=== PATIENT | female | born 1990 | race Caucasian/White ===

== ENCOUNTER 2023-02-25 08:55 | Emergency (ER) | payer OTHER, SELFPAY ==
[2023-02-25 09:23] VITALS: BP 115/72; PULSE 85; RESP 18; TEMP 37; O2SAT 100
--- NOTE | 2023-02-25 12:31 | ED.DENTAL ---
HPI - Dental/Oral General Chief complaint: Dental/Oral Stated complaint: swollen lips, bumps in mouth Time Seen by Provider: 02/25/23 11:03 History of Present Illness HPI Narrative: This is a 32-year-old female, with past medical history of left-sided salivary gland stone, who presents emergency department complaining of painful lesions of the gums with the past week. She states these arose without obvious injury or fever. She was seen by her dentist who prescribed a topical steroid cream. She denies presence of similar lesions elsewhere. She complains of some pain with swallowing but denies difficulty swallowing or difficulty breathing. Related Data Allergies Allergy/AdvReac Type Severity Reaction Status Date / Time No Known Allergies Allergy Verified 02/25/23 10:59 Review of Systems Review of Systems: CONSTITUTIONAL: Denies fever, chills, or sweats. ENT: Sore throat, gum pain Denies rhinorrhea, congestion, otalgia. CARDIOVASCULAR: Denies chest pain, palpitations, or edema. RESPIRATORY: Denies cough or dyspnea. GASTROINTESTINAL: Denies abdominal pain, nausea, vomiting, or diarrhea. GENITOURINARY: Menstrual period ongoing Denies dysuria or hematuria. SKIN: Denies rash or itching. MUSCULOSKELETAL: Denies back pain, joint pain, or myalgia. NEUROLOGIC: Denies headache, numbness, dizziness, or weakness. PSYCHIATRIC: Denies anxiety or depression. PMFSH Past Medical History Medical History Salivary gland stone Surgical History Surgical History No significant past surgical history Social History Social History (Updated 02/25/23 @ 12:34 by Jake Lee MD) Smoking status: Never smoker Alcohol intake: never Substance use: never Exam Narrative: GENERAL: Well-appearing, well-nourished, and in no acute distress. HEAD: Normocephalic, atraumatic. EYES: PERRLA and EOMI. ENT: Nares clear, no rhinorrhea or epistaxis. Mucous membranes moist. Multiple shallow ulcers with surrounding erythema noted on mucosa of the upper and lower lips and the exterior gingiva. Oropharynx without tonsillar hypertrophy exudate or other lesions. CHEST: Clear to auscultation. No respiratory distress. No wheezes rales or rhonchi HEART: Regular rate and rhythm. No murmur heard. Normal peripheral pulses. NEURO: No focal deficits. Alert and oriented x3. PSYCH: Normal mood and affect. Course Course Emergency Course: 12:20 - Exam consistent with aphthous ulcers. Patient is on appropriate treatment plan by her dentist. Will add a viscous lidocaine for pain. I advised the patient follow-up with her primary care doctor and dentist. Discussed return and emergency precautions including signs/symptoms of airway compromise. The patient voiced understanding and is comfortable with the plan. All questions answered to her satisfaction. GLAZIER APPRENTICE/PA Physician Supervision Vital Signs Vital signs: Vital Signs Temperature 98.6 F 02/25/23 09:23 Pulse Rate 85 02/25/23 09:23 Respiratory Rate 18 02/25/23 09:23 Blood Pressure 115/72 02/25/23 09:23 Pulse Oximetry 100 02/25/23 09:23 Oxygen Delivery Room Air 02/25/23 09:23 Temperature 98.6 F 02/25/23 09:23 Pulse Rate 76 02/25/23 12:45 Respiratory Rate 16 02/25/23 12:45 Blood Pressure 112/70 02/25/23 12:45 Pulse Oximetry 98 02/25/23 12:45 Oxygen Delivery Room Air 02/25/23 09:23 MDM - Dental/Oral MDM Narrative Medical decision making narrative: Plan: Pain control, dental follow-up Differential Diagnosis Differential diagnosis: Likely aphthous ulcer and other ( viral ulcer, other) Discharge Plan Discharge Clinical Impression: Aphthous ulcer Patient Disposition: Home, Self-Care Condition: Stable Instructions: Antibiotic Form, Gingivostomatitis (ED) Additional Instructions: You were seen in the emergency departmen
[2023-02-25] MEDS: LIDOCAINE HCL 2% VISC SOLN 15 ML UDC PO (12:38)
[2023-02-25 12:45] VITALS: BP 112/70; PULSE 76; RESP 16; O2SAT 98
== END 2023-02-25 12:48 | disposition home or self-care (01) ==
PROVIDERS: Emergency Provider Preventive Medicine Aerospace Medicine; PCP Family Medicine
DX: K12.0 Recurrent oral aphthae (principal)
CPT/HCPCS: 99283

== ENCOUNTER 2023-06-15 18:04 | Emergency (ER) | payer OTHER, SELFPAY ==
--- NOTE | ~2023-06-15 | US_ITS ---
EXAMINATION: US pelvic complete w TV DATE: 06/15/2023 22:18 INDICATION: RLQ Pain TECHNIQUE: Multiple transabdominal and endovaginal sonographic images of the pelvis were obtained. COMPARISON: CT abdomen pelvis, same date FINDINGS: Uterus: 8.5 x 3.8 x 4.5 cm. Endometrial complex measures 6 mm. Nabothian cysts. Right Ovary: 3.6 x 2.3 x 2.1 cm. Vascular flow is present. Small simple cyst or dominant follicle. Left Ovary: Not visualized. There is no free fluid in the pelvis. IMPRESSION: Left ovary not visualized, but was normal in the prior CT. Otherwise normal pelvic sonogram findings. Reviewed, dictated and finalized at location K. IMPRESSION: Left ovary not visualized, but was normal in the prior CT. Otherwise normal pel star sonogram findings.
--- NOTE | ~2023-06-15 | CT_ITS ---
EXAMINATION: CT abdomen pelvis w con DATE: 06/15/2023 20:45 INDICATION: RLQ pain TECHNIQUE: Computed tomography (CT) of the abdomen and pelvis was performed with 100 mL Omnipaque-350 intravenous contrast. Automated exposure control and iterative reconstruction technique were employe d. The dose-length product was 373.83 mGy-cm. COMPARISON: None. FINDINGS: Lower thorax: Unremarkable Liver: Normal. Biliary/Gallbladder: Gallbladder is normal. No bile duct dilation. Pancreas: No mass or duct dilation. Spleen: Normal. Adrenals:No mass. Kidneys: No suspicious mass, obstructing stone, or hydronephrosis. GI tract: Mild distal esophageal and gastric wall edema. Large volume of colonic feces. No small or l arge bowel dilation. Normal appendix. Mesentery/Peritoneum: No ascites, mass, or free air. Retroperitoneum: No mass. Pelvis: Pelvic organs are within normal limits. Soft Tissues: Soft tissues and body wall unremarkable. Bones: No acute osseous finding. Sacralization of L5. Rudimentary disc at L5-S1. 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 IMPRESSION: Mild esophagitis/gastritis. Large volume of colonic feces, correlate for clinical findings of constipation. Reviewed, dictated and finalized at location K.
[2023-06-15 18:09] VITALS: BP 142/73; PULSE 79; RESP 20; TEMP 36.4; O2SAT 100
--- NOTE | 2023-06-15 18:15 | ED.ABDPAIN ---
HPI - Abdominal Pain General Chief Complaint: Abdominal Pain <Elo Gutiérrez PA-C - Last Filed: 06/15/23 18:16> Stated Complaint: RLQ pain <Elo Gutiérrez PA-C - Last Filed: 06/15/23 18:16> Time Seen by Provider: 06/15/23 21:01 <Elo Gutiérrez PA-C - Last Filed: 06/15/23 18:16> Focused HPI: 33-year-old female with a history of appendectomy presents to emergency department her lower quadrant abdominal pain that started yesterday. Patient states pain is worse with movement and any flexion of her abdominal muscles. states she can not pinpoint the area of pain with 1 finger. She reports nausea, denies vomiting, fever, dysuria or hematuria, vaginal discharge concern for STDs. LMP was 06/04. She does report some loose stools GENERAL: Well-appearing, well-nourished, and in no acute distress. HEAD: Normocephalic, atraumatic. CHEST: Clear to auscultation. ?No respiratory distress. ABD: mild tenderness in the right lower quadrant without rebound, guarding rigidity. No CVA tenderness. HEART: Regular rate and rhythm.? NEURO: ?Alert and oriented x3. Patient screened in triage and initial orders placed.? ?Additional care and disposition to be based upon?diagnostic testing and treatment. <Elo Gutiérrez PA-C - Last Filed: 06/15/23 18:16> Related Data Allergies/Adverse Reactions: Allergies Allergy/AdvReac Type Severity Reaction Status Date / Time No Known Allergies Allergy Verified 02/25/23 10:59 <Elo Gutiérrez PA-C - Last Filed: 06/15/23 18:16> Review of Systems Review of Systems: All systems are reviewed and are negative unless stated otherwise in the HPI. <Deborah Lai MD - Last Filed: 06/16/23 07:33> PMFSH Past Medical History Medical History: Medical History Salivary gland stone <Elo Gutiérrez PA-C - Last Filed: 06/15/23 18:16> Surgical History Surgical History: Surgical History No significant past surgical history <Elo Gutiérrez PA-C - Last Filed: 06/15/23 18:16> Social History Social History: Social History Smoking status: Never smoker Alcohol intake: never Substance use: never <Elo Gutiérrez PA-C - Last Filed: 06/15/23 18:16> Exam Narrative: General: Alert, awake, afebrile, in no acute distress. HEENT: PERRL, no rhinorrhea, no post nasal drip, oropharynx clear. Neck: Trachea midline, no JVD, no lymphadenopathy. Cardiovascular: Regular rate and rhythm, no murmurs, rubs or gallops, no peripheral edema. Respiratory: Clear to auscultation bilaterally, no tachypnea, no wheezing, no rhonchi, no rubs, no respiratory distress. Abdomen: Soft, mild tenderness to palpation over the right lower quadrant, nondistended, no rebound, no guarding, no peritoneal signs. Musculoskeletal: No joint swelling or deformity, normal muscle tone. Skin: No rashes or petechia, no signs of infection. Psychiatric: Alert and oriented, normal behavior and judgment for situation. Neurological: Alert and oriented to person, place, and time. Follows all commands. No focal deficits, speech is clear and fluent. <Deborah Lai MD - Last Filed: 06/16/23 07:33> Course Vital Signs Vital signs: Vital Signs Temperature 97.5 F L 06/15/23 18:09 Pulse Rate 79 06/15/23 18:09 Respiratory Rate 20 06/15/23 18:09 Blood Pressure 142/73 H 06/15/23 18:09 Pulse Oximetry 100 06/15/23 18:09 Temperature 97.5 F L 06/15/23 18:09 Pulse Rate 77 06/15/23 21:10 Respiratory Rate 18 06/15/23 21:10 Blood Pressure 132/81 06/15/23 21:10 Pulse Oximetry 100 06/15/23 21:10 <Elo Gutiérrez PA-C - Last Filed: 06/15/23 18:16> Vital Signs Temperature 97.5 F L 06/15/23 18:09 Pulse Rate 79 06/15/23 18:09 Respiratory Rate 20 06/15/23 18:09 Blood P
[2023-06-15 19:10] LABS: Basophils Percent Auto 0.5 % (0.2-1.2); Eosinophils Absolute Auto 0.2 K/mm3 (0-0.3); Eosinophils Percent Auto 3.3 % (0-4.4); Hematocrit 40.3 % (37.0-47.0); Hemoglobin 13.1 g/dL (12.0-15.0); Immature Granulocyte Absolute 0.01 K/mm3 (0.00-0.031); Immature Granulocyte Percent A 0.2 % (0-0.5); Lymphocytes Absolute Auto 1.84 K/mm3 (0.9-3.2); Lymphocytes Percent Auto 28.8 % (18.3-44.2); Mean Corpuscular HGB Conc 32.5 g/dl (32-36); Mean Corpuscular Hemoglobin 30.8 pg (26-34); Mean Corpuscular Volume 94.6 fl (80-100); Mean Platelet Volume 9.7 fl (7.4-10.4); Monocytes Absolute Auto 0.5 K/mm3 (0.1-0.6); Neutrophils Absolute Auto 3.9 K/mm3 (1.3-6.7); Neutrophils Percent Auto 60.2 % (45.5-73.1); Platelet Count Result 168 k/mm3 (150-375); Red Blood Count 4.26 M/mm3 (4.2-5.4); Red Cell Distribution Width 12.3 % (11.5-14.5); White Blood Count 6.4 K/mm3 (4.5-10.0)
[2023-06-15 19:15] LABS: Appearance Urine Clear (Clear); Bilirubin Urine Negative (Negative); Blood Urine Negative (Negative); Color Urine Yellow (Yellow); Glucose Urine UA Negative (Negative); Ketones Urine Negative (Negative); Leukocyte Esterase Ur Negative LEU/UL (Negative); Nitrate Urine Negative (Negative); Protein Urine Negative (Negative); Urobilinogen Urine 0.2 mg/dL (<2.0); pH Urine 6.5 (5.0-9.0)
[2023-06-15 19:21] LABS: Add Urine Microscopic? NO; Specific Grav Ur 1.004 (1.001-1.035)
[2023-06-15 19:31] LABS: Alanine Aminotransferase 8 U/L (6-35); Albumin Level 4.8 g/dL (3.5-5.1); Alkaline Phosphatase 58 U/L (38-126); Anion Gap 8 mmol/L (4-12); Aspartate Amino Transferase 28 U/L (14-36); Bilirubin,Total 0.6 mg/dL (0.2-1.3); Blood Urea Nitrogen 10 mg/dL (7-17); Calcium 9.4 mg/dL (8.4-10.2); Carbon Dioxide 24 mmol/L (22-30); Chloride 106 mmol/L (98-107); Estimated CRCL calculation 98 ml/min; Estimated Glomerular Filt Rate > 60; Glucose 85 mg/dL (65-110); Lactic Acid Reflex 0.9 mmol/L (0.7-2.0); Lipase 74 U/L (23-300); Potassium 3.7 mmol/L (3.4-5.0); Sodium 138 mmol/L (137-145)
[2023-06-15 21:10] VITALS: BP 132/81; PULSE 77; RESP 18; O2SAT 100
== END 2023-06-15 22:57 | disposition home or self-care (01) ==
PROVIDERS: Physician Assistant; Emergency Provider Emergency Medicine; PCP Family Medicine
DX: K29.00 Acute gastritis without bleeding (principal); K20.90 Esophagitis, unspecified without bleeding; K59.00 Constipation, unspecified
CPT/HCPCS: 36415; 74177; 76830; 76856; 80053; 81003; 81025; 83605; 83690; 85025; 99284; Q9967

== ENCOUNTER 2024-09-24 17:04 | Emergency (ER) | payer SELFPAY ==
--- OUTSIDE RECORDS SUMMARY | 2024-09-24 17:07 | XMS_ITS | Encounter Summary ---
Author Organization [facility] Address [address] [place] [address] Phone Care Team Providers Care Equipment Validation Specialist Name Role Phone Unavailable Primary Care Provider Unavailabl e Encounter Details Date Type Department Care Team (Late st Contact Info) Description 03/24/2022 Lab Requisition [facility] [address] [place] [address] Braeden Tabares MD [address] [place] [address] [address] [place], [place] [id number] Encounter for screening for COVID-19 Social History Tobacco Use Types Packs/Day Years Used Date Smoking Tobacco: Never Assessed Comments Unknown Sex and Gender Information Value Date Recorded Sex Assigned at Not on file Legal Sex Female 1:53 PM NURSES' ASSOCIATION COUNSELOR Gender Identity Not on file Sexual Orientation Not on file documented as of this encounter Plan of Treatment Not on file documented as of this encounter Procedures Procedure Name Priority Date/Time Associated Diagnosis Comments SARS-COV-2 BY MOLECULAR Routine 03/24/2022 11:45 AM NURSES' ASSOCIATION COUNSELOR Encounter for screening for COVID-19 documented in this encounter Results * SARS-COV-2 BY MOLECULAR (03/24/2022 11:45 AM NURSES' ASSOCIATION COUNSELOR) SARSCOV2 NOT DETECTED (Referen ce Range for this test is Not Detected ) [facility] THERMOFISHER FAST DX 03/25/2022 12:19 AM NURSES' ASSOCIATION COUNSELOR [facility] Comment:This test was perfor med by a RT-PCR method. Other Non-Phlebotomy Collection / Unknown 03/24/2022 11:45 AM NURSES' ASSOCIATION COUNSELOR 03/24/2022 1:25 PM NURSES' ASSOCIATION COUNSELOR Narrative [facility] - 03/25/2022 12:19 AM NURSES' ASSOCIATION COUNSELOR Authorized Fact Sheets about this test for providers and patients are available at: https://www.fda.gov/medical-devices/sejodaxhp-predojseog-lqvjwdm-devices/emergen -us e-authorizations us Braeden Tabares MD MICROBIOLOGY - GENERAL ORDERAB LES Final Result [facility] [address] [place] [address], documented in this encounter Visit Diagnoses Diagnosis Encounter for screening for COVID-19 documented in this encounter Additional Health Concerns Infection Onset Date Last Indicated Resolved Time COVID - 19 03/24/2022 03/31/2022 04/10/2022 12:1 6 AM NURSES' ASSOCIATION COUNSELOR documented as of this encounter
--- OUTSIDE RECORDS SUMMARY | 2024-09-24 17:07 | XMS_ITS | Encounter Summary ---
Author Organization [facility] Address [address] [place] [address] Phone Care Team Providers Care Traffic Analysis Technician Name Role Phone Unavailable Primary Care Provider Unavailabl e Encounter Details Date Type Department Care Team (Late st Contact Info) Description 03/31/2022 Lab Requisition [facility] [address] [place] [address] Braeden Tabares MD [address] [place] [address] [address] [place] [address] Encounter for screening for COVID-19 Social History Tobacco Use Types Packs/Day Years Used Date Smoking Tobacco: Never Assessed Comments Unknown Sex and Gender Information Value Date Recorded Sex Assigned at Not on file Legal Sex Female 1:53 PM POULTRY FIELD SERVICE TECHNICIAN Gender Identity Not on file Sexual Orientation Not on file documented as of this encounter Plan of Treatment Not on file documented as of this encounter Procedures Procedure Name Priority Date/Time Associated Diagnosis Comments SARS-COV-2 BY MOLECULAR Routine 03/31/2022 8:31 AM POULTRY FIELD SERVICE TECHNICIAN Encounter for screening for COVID-19 documented in this encounter Results * SARS-COV-2 BY MOLECULAR (03/31/2022 8:31 AM POULTRY FIELD SERVICE TECHNICIAN) SARSCOV2 NOT DETECTED (Referen ce Range for this test is Not Detected ) [facility] THERMOFISHER FAST DX 04/01/2022 6:43 AM POULTRY FIELD SERVICE TECHNICIAN [facility] Comment:This test was perfor med by a RT-PCR method. Other Non-Phlebotomy Collection / Unknown 03/31/2022 8:31 AM POULTRY FIELD SERVICE TECHNICIAN 03/31/2022 11:14 AM POULTRY FIELD SERVICE TECHNICIAN Narrative [facility] - 04/01/2022 6:43 AM POULTRY FIELD SERVICE TECHNICIAN Authorized Fact Sheets about this test for providers and patients are available at: https://www.fda.gov/medical-devices/kfuicmbqg-awpikmukri-yctuqtm-devices/emergen -us e-authorizations us Braeden Tabares MD MICROBIOLOGY - GENERAL ORDERAB LES Final Result [facility] [address] [place] [address], documented in this encounter Visit Diagnoses Diagnosis Encounter for screening for COVID-19 documented in this encounter Additional Health Concerns Infection Onset Date Last Indicated Resolved Time COVID - 19 03/24/2022 03/31/2022 04/10/2022 12:1 6 AM POULTRY FIELD SERVICE TECHNICIAN documented as of this encounter
--- OUTSIDE RECORDS SUMMARY | 2024-09-24 17:07 | XMS_ITS | Encounter Summary ---
Author Organization [facility] Address [address] [place] [address] Care Team Providers Care Wrong Address Clerk Name Role Phone Belia Sierra MD Primary Care Provider [phone] Encounter Details Date Type Department Care Team (Late st Contact Info) Description 09/18/2024 Live Life 360t Message Enc [facility] [address] [place] [address] Peggy Paetl NP [address] [facility] [address] [place] [address] Change in BM Social History Tobacco Use Types Packs/Day Years Used Date Smoking Tobacco: Never Passive Smoke Exposure: Never Smokeless Tobacco: Never Alcohol Use Standard Drinks/Week Comments No 0 (1 standard drink = 0.6 oz pur e alcohol) AUDIT-C Answer Date Recorded Frequency of Alcohol Consumption Never 12/06/2017 Average Number of Drinks Not on file 018 Frequency of Binge Drinking Not on file 11/18 PHQ-2 Answer Date Recorded Patient Health Questionnaire-2 Score 0 08/28/2024 Comments No Sex and Gender Information Value Date Recorded Sex Assigned at Female 04/16/2024 9:58 AM MAT TESTER Legal Sex Female 8:14 AM CDT Gender Identity Female 04/16/2024 9:58 AM MAT TESTER Sexual Orientation Straight 07/19/2024 8: 31 AM CDT documented as of this encounter Plan of Treatment Upcoming Encounters Date Type Department Care Team (Latest Contact Info) Description 12/27/2024 12:43 PM CDT Hospital Encounter [facility] [address] [place] [address] Jay Real MD [address] [facility] [address] [place] [address] 12/27/2024 12:43 PM CDT - 12/27/2024 1:13 PM CDT Surgery [facility] [address] [place] [address] Jay Real MD [address] [facility] [address] [place] [address] COLONOSCOPY DIAGNOSTIC WITH/WITHOUT SPECIMEN BRUSH/WASH Scheduled Procedures Name Priority Associated Diagnoses Date/Ti me COLONOSCOPY DIAGNOSTIC WITH/WITHOUT SPECIMEN BRUSH/WASH Irregular bowel habits 12/27/2024 12:43 PM CDT documented as of this encounter Goals Goal Patient Goal Type Associated Problems Recent Progress Patient-Stated? Author Autogenerat ed Goal Care Plan Autogenerated Problem No Carol Ann Urena RN documented as of this encounter Visit Diagnoses Not on filedocumented in this encounter Additional Health Concerns Active Problems Noted Date Diagnosed Date Autogenerated Problem 08/29/2024 Assessment Noted Time PHQ-9 Depression Total Score: 0 05/22/19 25 4:55 PM MAT TESTER documented as of this encounter Care Teams Wrong Address Clerk Relationship Specialty Start Date End Date Belia Sierra MD [facility] [address] [address] PCP - General FAMILY PRACTICE 03/05/24 documented as of this encounter
--- OUTSIDE RECORDS SUMMARY | 2024-09-24 17:07 | XMS_ITS | Data Portability ---
Author Organization [place] - [facility], Main Office Address [address] [place] [address] Assessment No assessment recorded. Plan of Treatment Reminders Order Date Submit Date Provider Last Modified By Organization Details Last Modified Time Details Appointments None recorded. Lab vitamin B12 + folate, serum or blood [address] (Lab), [address] [place], [address], 3 12:52:19 vitamin D, 25-hydroxy, total, serum [address] (Lab), [address] [place], [address], 3 12:52:36 iron + TIBC + ferritin, serum [address] (Lab), [address] [place], [address], 3 12:52:53 TSH, serum, reflex free T4 [address] (Lab), [address] [place], [address], 3 12:53:14 estrogen, total, serum [address] (Lab), [address] [place], [address], 3 12:53:30 progesteron e, serum [address] (Lab), [address] [place], [address], 3 12:53:45 testosteron e, free + total, serum [address] (Lab), [address] [place], [address], 3 12:54:04 FSH (follicle-s timulating hormone), serum [address] (Lab), [address] [place], [address], 3 12:54:18 lh (luteinizin g hormone), serum [address] (Lab), [address] [place], [address], 3 12:54:34 lipid panel, serum [address] (Lab), [address] [place], [address], 3 12:55:54 BMP, serum or plasma [address] (Lab), [address] [place], [address], 3 12:54:50 CMP, serum or plasma [address] (Lab), [address] [place], [address], 3 12:55:38 Referral gynecologis t referral - Please call the pt to make an appt. Thank you 2022 023 Lain[facility] Peacock MD, [facility], [address], [address], 09:35:24 Procedures None recorded. Surgeries None recorded. Imaging None recorded. Medication Orders None recorded. Patient TargetsNo targets recorded. Patient InstructionsNo instructions recorded. 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 Thank you Referring Physician: Hodan Jefferson, Family Medicine, Encounter Date: 07/11/2022 Results Created Date Observation Date Name Description Value Unit Range Abnormal Flag Note LastModifiedBy Organization Detail LastModifiedTime 12/08/19 21 12/07/2020 PPD (loren fied prote in deriv ative ), skin test TB negati ve Not Available [facility] [address] , [place], [address], 12/01/2020 15:18:18 06/15/19 24 06/15/2023 CT, abdom en + pelvi s, w/ contr ast No observ ation record ed. [address], [address], 06/19/2023 13:32:44 06/15/19 24 06/15/2023 US, pelvi s No observ ation record ed. [address], [address], 06/19/2023 13:33:11 06/19/19 24 06/15/2023 CT, abdom en + pelvi s, w/ contr ast No observ ation record ed. [address], [address], 06/19/2023 13:33:26 06/22/19 24 06/15/2023 CT, abdom en + pelvi s, w/o contr ast No observ ation record ed. [address], [address], 08/04/2023 15:44:30 Result Notes None recorded. Problems Name Problem SNOMED Code Status Onset Date Resolution Date Notes Provider Name and Address Organization Details Recorded Time Loss of hair [id number] Active 023 ALLEN Richards [address] [facility], [address], [place], [address] , [facility] [employer] [facility] 07/11/2022 11:02:41 Problem Notes None recorded. Procedures Surgical History Date Name Laterality Status Provider Name and Address Organization Details Recorded Time Appendectomy completed Not Available [facility] 05/18/2022 21:48:59 colposcopy completed Not Available [facility] 05/18/2022 21:48:59 Imaging Results None recorded. Procedure Notes None recorded. Medical Equipment None Reported. Allergies No known drug allergies Medications Name Sig Start Date Stop Date Status Note LastModified by Organization Details LastModified Time dicloxacill in 500 mg capsule Take 1 capsule twice a day by oral route for 7 days. active Not Available Not Available No t Available valacyclovi r 1 gram tablet Take 1 tablet every 12 hours by oral route for 7 days. active Not Available Not Available No t Available prednisone 20 mg tablet Take 2 tablets every day by oral route for 5 days. active Not Available Not Available No t Available Zithromax Z-Roly 250 mg tablet TAKE 2 TABLETS (500 MG) BY ORAL ROUTE ONCE DAILY FOR 1 DAY THEN 1 TABLET (250 MG) BY ORAL ROUTE ONCE DAILY FOR 4 DAYS active Not Available Not Available No t Available ciprofloxac in 500 mg tablet 08/25 completed Not Available Not Available Not Available benzonatate 100 mg capsule 08/25 completed Not Available Not Available Not Available oseltamivir 75 mg capsule 08/25 completed Not Available Not Available Not Available triamcinolo ne acetonide 0.1 % topical ointment APPLY A THIN LAYER TO THE AFFECTED AREA(S) BY TOPICAL ROUTE 2 TIMES PER DAY active Not Available Not Available No t Available sertraline 25 mg tablet Take 1 tablet(s) every day by oral route. active Not Available Not Available No t Available gabapentin 100 mg capsule Take 1 capsule 3 times a day by oral route as needed for 10 days. 12/01 completed Not Available Not Available Not Available ondansetron 4 mg disintegrat ing tablet 08/25 completed Not Available Not Available Not Available fluticasone propionate 50 mcg/actuati on nasal spray,suspe nsion SPRAY 1 SPRAY BY INTRANASA L ROUTE EVERY DAY active Not Available Not Available No t Available sertraline 50 mg tablet TAKE 1 TABLET BY MOUTH EVERY DAY active Not Available Not Available No t Available amoxicillin 875 mg-potassiu m clavulanate 125 mg tablet TAKE 1 TABLET BY MOUTH EVERY 12 HOURS WITH MEALS FOR 7 DAYS active Not Available Not Available No t Available Zylet 0.3 %-0.5 % eye drops,suspe nsion 08/25 completed Not Available Not Available Not Available Vitals Date Recorded Body mass index (BMI) Body height Oxygen saturation Oxygen saturation in Arterial blood by Pulse oximetry Heart rate Body temperature Body weight Systolic And Diastolic Provider Name and Address Organization Details Last Updated DateTime 2 27.7 kg/m2 172.72 cm 98 % 98 % 78 /min 97.5 [degF] 36318.8 1 g 120/80 mm[Hg] Not Available [facility] 3 21:49:06 Date Recorded Body height Body mass index (BMI) Body weight Body temperature Heart rate Oxygen saturation Oxygen saturation in Arterial blood by Pulse oximetry Systolic And Diastolic Provider Name and Address Organization Details Last Updated DateTime 3 172.72 cm 27.5 kg/m2 36832.2 2 g 97.8 [degF] 78 /min 99 % 99 % 118/74 mm[Hg] Peggy meyers [facility] 3 10:49:40 Date Recorded Body mass index (BMI) Body height Oxygen saturation Oxygen saturation in Arterial blood by Pulse oximetry Heart rate Body temperature Body weight Systolic And Diastolic Provider Name and Address Organization Details Last Updated DateTime 2 27.5 kg/m2 172.72 cm 99 % 99 % 81.99 /min 96.3 [degF] 42516.2 2 g 122/64 mm[Hg] Not Available [facility] 3 21:49:06 Date Recorded Body height Provider Name an d Address Organization Details Last Updated DateTime 12/04/2020 172.72 cm Not Available [facility] 3 21:49:06 Date Recorded Body mass index (BMI) Body height Oxygen saturation Oxygen saturation in Arterial blood by Pulse oximetry Heart rate Body temperature Body weight Systolic And Diastolic Provider Name and Address Organization Details Last Updated DateTime 2 27.7 kg/m2 172.72 cm 100 % 100 % 90 /min 97.7 [degF] 00028.8 1 g 108/72 mm[Hg] Not Available [facility] 3 21:49:06 Social History Question Answer Notes LastModified by [employer] Details LastModified Time Tobacco Smoking Status Never Smoker Not Available [facility] 05/18/2022 21:48:48 What Is Your Level Of Caffeine Consumption? Occasional [id number] Information not available 05/18/2022 In The 14 Days Before Symptom Onset, Have You Had Close Contact With A Laboratory-confirm ed COVID-19 While That Case Was Ill? No [id number] Information not available 05/18/2022 In The 14 Days Before Symptom Onset, Have You Had Close Contact With A Person Who Is Under Investigation For COVID-19 While That Person Was Ill? No [id number] Information not available 05/18/2022 What Type Of Diet Are You Following? REGULAR [id number] Information not available 05/18/2022 Have There Been Any Changes To Your Family Or Social Situation? No [id number] Information not available 05/18/2022 What Was The Date Of Your Most Recent Tobacco Screening? 12/01/2020 [id number] Information not available 05/18/2022 Has Tobacco Cessation Counseling Been Provided? No [id number] 8540 Information not available 05/18/2022 Have You Recently Traveled Abroad? No [id number] Information not available 05/18/2022 Do You Have Any Dietary Restrictions? No [id number] Information not available 05/18/2022 Sex: Unknown Functional Status Question Answer Note LastModified by [employer] Details LastModified Time Do you use any illicit or recreational drugs? No [id number] Information not available 05/18/2022 Do you or have you ever used any other forms of tobacco or nicotine? No [id number] Information not available 05/18/2022 What is your exercise level? Occasional [id number] Information not available 05/18/2022 Mental Status None recorded. Family History Relationship Description Onset Age of this Age Resolved Age Notes LastModified by Organization Details LastModified Time Father Heart disease [id number] Not available 05/18/2022 21:49:00 Father Hypertensive disorder [id number] Not available 05/18/2022 21:49:00 Father Glaucoma 40 [id number] Not available 05/18/2022 21:49:00 Paternal Grandmother Diabetes mellitus [id number] Not available 05/18/2022 21:49:00 Medical History No medical history recorded. Gynecological History Statement/Question Response Abnormal Pap N Flow Moderate Dislike of Light during Menstrual Headac he N STIs/STDs N Duration of Flow (days) 5 Current Control Method None Breast Problems none How many live births 2 Sexually Active? Y Weight gain N Menses Monthly Y Discharge none Obstetrics History GPAL:G 0 P 0 0 0 0 Immunizations Vaccine Type Date Status Note Provider Nam e and Address Organization Details Recorded Time COVID-19 PS Non-US Vaccine (EpiVacCorona ) 07/21/2020 completed Not Available [facility] 21:50:38 COVID-19 VVnr Non-US Vaccine (Sputnik V) 06/28/2020 completed Not Available [facility] 05/19/19 21:50:38 Influenza, split virus, quadrivalent, PF 12/01/2020 completed Not Available [facility] 21:50:38 Past Encounters Encounter ID Performer Location Encounter Start Date Encounter Closed Date Diagnosis/Indication Diagnosis SNOMED-CT Code Diagnosis ICD10 Code Diagnosis Note [id number] [facility] [place] [address] [facility] [address] [place] [address] 12/01/2020 00:00:00 12/01/2020 21:07:21 [id number] ALLEN Richards JameelEmanuel [facility] [place] [address] [place] [address] 12/04/2020 00:00:00 12/07/2020 08:06:21 [id number] [facility] [place] [address] [place] [address] 05/24/2021 00:00:00 05/24/2021 12:10:53 [id number] ALLEN Richards [facility] [place] [address] [place] [address] 08/02/2021 00:00:00 08/02/2021 13:46:06 [id number] ALLEN Richards [facility] Primary [place] [address] [place] [address] 01/12/2022 00:00:00 01/12/2022 10:57:52 [id number] ALLEN Richards [facility] Primary [place] [address] [place] [address] 07/11/2022 10:45:16 07/11/2022 12:56:09 Loss of hair 089041416 L65.9 Will get labs to r/o physiologi c causes. She has also been experienci ng fatigue, skin changes, mood swings. All related to post-partu m state. 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 Diabetes m ellitus screening 875119826 Z13.1 Hyperlipid emia screening [id number] Z13.220 Referral needed [id number] Z76.[address] Pt[address]i st for routine f/u. Would also like to see someone that specialize s in hormones. Health Concerns Section Related Observation LastModified by Organization Detai ls LastModified Time None Recorded Concern Status LastModified by Organization Details LastModified Time None Recorded Advance Directives Directive None Recorded Payers Insurance Date Sequence Insurance Name Policy Number Policy Kraus Covered Member ID Kraus Member ID Guarantor Name 07/11/2022 1 [facility]LY [facility] [place] - DOS PRIOR TO 2024 (PPO) [id number] Ken Kaur [id number] MAI Kaur 04/24/2023 1 FOR[facility]LY [facility] [place] - DOS PRIOR TO 2024 (PPO) [id number] Ken Kaur [id number] MAI Kaur Notes Date Note Type Note Provider Name and Address Organization Details Recorded Time 07/11/2022 text/html Pt. is concerned she has issues with her hormones. 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 She has also noticed increased hair loss, fatigue and mood swings. She states all symptoms started during and she thought it would get better afterwards. She delivered her last baby 03/19/2020, stopped in 04/2022. Cycles have gone back to normal. ALLEN Richards [address] [facility], [facility] [address], [place], [address], [facility] 07/11/2022 12:48:25 OBGyn Episode No OBEpisode recorded.
--- OUTSIDE RECORDS SUMMARY | 2024-09-24 17:07 | XMS_ITS | Referral Summary ---
Author Organization [facility] Address [address] [place] [address] Care Team Providers Care Woodworking Craftsman Name Role Phone Jessica Browne MD Primary Care Provider + Jessica Browne MD Unavailable [phone] Allergies No known active allergies Medications sertraline (ZOLOFT) 25 mg tablet TAKE 1 TABLET BY MOUTH EVERY DAY FOR 30 DAYS 05/24/2021 Active 25/iron fum/folic/dha (-1 ORAL) Take 1 tablet by mouth daily Active amoxicillin-clav ulanate (AUGMENTIN) 875-125 mg per tablet Take 1 tablet by mouth 2 (two) times a day 08/11/2022 Active Active Problems Problem Noted Date Diagnosed Date Encounter for PPD skin test reading 09/15/2022 Immunizations Immunization Administration Dates Next Due PPD TEST 09/13/2022 Social History Tobacco Use Types Packs/Day Years Used Date Smoking Tobacco: Never Tobacco Cessation:Counseling Given: Not Answered Personal Safety Answer Date Recorded Getting School Help Needed Not on file 05/19 Comments No Sex and Gender Information Value Date Recorded Sex Assigned at Not on file 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 Gender Identity Not on file Sexual Orientation Not on file Last Filed Vital Signs Vital Sign Reading Time Taken Comments Blood Pressure 110/64 09/13/2022 2:48 PM CDT Pulse 76 09/13/2022 2:48 PM CDT Temperature 36.7 C (98 F) 09/13/2022 2:48 PM CDT Respiratory Rate 20 09/13/2022 2:48 PM CDT Oxygen Saturation 98% 09/13/2022 2:48 PM CDT Inhaled Oxygen Concentration - - Weight 79.4 kg (175 lb) 09/13/2022 2:48 PM CDT Height 172.7 cm (5' 8) 09/13/2022 2:48 PM CDT Body Mass Index 26.61 09/13/2022 2:48 PM CDT Plan of Treatment Not on file Insurance [facility] [place] [address] Care Teams Woodworking Craftsman Relationship Specialty Start Date End Date Jessica Browne MD [address] [place] [address] PCP - General Family Medicine 05/24/21 Jessica Browne MD [address] [place] [address] Family Medicine 05/24/21
--- OUTSIDE RECORDS SUMMARY | 2024-09-24 17:07 | XMS_ITS | Clinical Summary ---
Author Organization [facility] Address [address] [place] [address] Care Team Providers Care Rn Gastroenterology Name Role Phone Jessica Browne MD Primary Care Provider + Jessica Browne MD Unavailable [phone] Allergies No known active allergies Medications sertraline [...] Administration Dates Next Due PPD TEST 09/13/2022 Medical History Medical History Date Comments Anxiety Heart murmur Urinary tract infection Family History Medical History Relation Name Comments Glaucoma Father Hypertension Father Relation Name Status Comments Father Social History Tobacco Use Types Packs/Day Years Used Date Smoking Tobacco: Never Tobacco Cessation:Counseling Given: Not Answered Personal Safety Answer Date Recorded Getting School Help Needed Not on file 05/19 Comments No Sex and Gender Information Value Date Recorded Sex Assigned at Not on file 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 Gender Identity Not on file Sexual Orientation Not on file Obstetrics History Last Filed Vital Signs Vital Sign Reading [...] 09/13/2022 2:48 PM CDT Plan of Treatment Health Maintenance Due Date Last Done Comments Cervical Cancer Screening 1989 Depression Screening 1989 Hepatitis C Screening 1989 DTaP/Tdap/Td Vaccine (1 - Tdap) 2000 Varicella Vaccines (1 of 2 - 13+ 2-dose series) 2002 Hepatitis B Screening 2007 Regular Well Visit/Exam 18-64 2007 Covid-19 Vaccine (4 - 2023-2 5 season) 2023 02/05/2021, 07/21/2020, 06/28/2020 Influenza Vaccine (#1) 2024 , 12/07/2017 HPV Vaccines Aged Out No longer eligi ble based on patient's age to complete this topic Pneumococcal vaccine <65 Aged Out No longer eligible based on patient's age to complete this topic Insurance [facility] Care Teams Rn Gastroenterology Relationship Specialty Start Date End Date Jessica Browne MD [address] [place] [address] PCP - General Family Medicine 05/24/21 Jessica Browne MD [address] [place] [address] [address] [place] [address] Family Medicine 05/24/21
--- OUTSIDE RECORDS SUMMARY | 2024-09-24 17:07 | XMS_ITS | Encounter Summary ---
Author Organization [facility] Address [address] [place] [address] Care Team Providers Care Emergency Medical Technician/Driver Name Role Phone Marjorie Saldivar MD Primary Care Provider [phone] None, Provider Primary Care Provider Belia Kirk MD Primary Care Provider [phone] Encounter Details Date Type Department Care Team (Late st Contact Info) Description 12/20/2017 Hospital Follow-up Call [facility] [place] [address] Christine Stiles RN Social History Tobacco Use Types Packs/Day Years Used Date Smoking Tobacco: Never Smokeless Tobacco: Never Alcohol Use Standard Drinks/Week Comments No 0 (1 standard drink = 0.6 oz pur e alcohol) AUDIT-C Answer Date Recorded Frequency of Alcohol Consumption Never 12/06/2017 Average Number of Drinks Not on file 018 Frequency of Binge Drinking Not on file 11/18 Comments No Sex and Gender Information Value Date Recorded Sex Assigned at Female 04/16/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 Legal Sex Female 8:14 AM CDT Gender Identity Female 04/16/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 Sexual Orientation Straight 07/19/2024 8: 31 AM CDT documented as of this encounter Plan of Treatment Upcoming Encounters Date Type Department Care Team (Latest Contact Info) Description 12/27/2024 12:43 PM CDT Hospital Encounter [facility] Surgery [address] [place] [address] Jay Real MD [address] [facility] [address] [place] [address] 12/27/2024 12:43 PM CDT - 12/27/2024 1:13 PM CDT Surgery [facility] Surgery [address] [place] [address] Jay Real MD [address] [facility] [address] [place] [address] COLONOSCOPY DIAGNOSTIC WITH/WITHOUT SPECIMEN BRUSH/WASH Scheduled Procedures Name Priority Associated Diagnoses Date/Ti me COLONOSCOPY DIAGNOSTIC WITH/WITHOUT SPECIMEN BRUSH/WASH Irregular bowel habits 12/27/2024 12:43 PM CDT documented as of this encounter Visit Diagnoses Not on filedocumented in this encounter Care Teams Emergency Medical Technician/Driver Relationship Specialty Start Date End Date Marjorie Saldivar MD [address] [facility] [address] [place] [address] PCP - General FAMILY PRACTICE 12/06/17 12/08/23 None, MD Yamilet PCP - General UNKNOWN PHYSICIAN SPECIALTY 12/09/23 1 05/05/23 Belia Sierra MD [address] [address] PCP - General FAMILY PRACTICE 03/05/24 documented as of this encounter
--- OUTSIDE RECORDS SUMMARY | 2024-09-24 17:07 | XMS_ITS | Encounter Summary ---
Author Organization 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 Legal Sex Female 8:14 AM CDT Gender Identity Female 04/16/2024 9:58 AM SIGNAL MAINTAINER HELPER Sexual Orientation Straight 07/19/2024 8: 31 AM CDT documented as of this encounter Plan of Treatment Upcoming Encounters Date Type Department Care Team (Latest Contact Info) Description 12/27/2024 12:43 PM CDT Hospital Encounter [facility] Surgery [address] [place] [address] Jay Real MD 3 [facility] [address] [place] [address] 12/27/2024 12:43 PM CDT - 12/27/2024 1:13 PM CDT Surgery [facility] Surgery [address] [place] [address] Jay Real MD 3 [facility] [address] [place] [address] COLONOSCOPY DIAGNOSTIC WITH/WITHOUT SPECIMEN BRUSH/WASH Scheduled Procedures Name Priority Associated Diagnoses Date/Ti me COLONOSCOPY DIAGNOSTIC WITH/WITHOUT SPECIMEN BRUSH/WASH Irregular bowel habits 12/27/2024 12:43 PM CDT documented as of this encounter Visit Diagnoses Not on filedocumented in this encounter Care Teams Rental Car Porter Relationship Specialty Start Date End Date Marjorie Saldivar MD [address] [facility] [address] [place] [address] PCP - General FAMILY PRACTICE 12/06/17 12/08/23 None, MD Yamilet PCP - General UNKNOWN PHYSICIAN SPECIALTY 12/09/23 1 05/05/23 Belia Sierra MD [address] [address] PCP - General FAMILY PRACTICE 03/05/24 documented as of this encounter
--- OUTSIDE RECORDS SUMMARY | 2024-09-24 17:07 | XMS_ITS | Clinical Summary ---
Author Organization [facility] Address [address] [place] [address] Care Team Providers Care Maintenance Machinist Name Role Phone Unavailable Primary Care Provider Unavailabl e Social History Tobacco Use Types Packs/Day Years Used Date Smoking Tobacco: Never Assessed Comments Unknown Sex and Gender Information Value Date Recorded Sex Assigned at Not on file Legal Sex Female 1:53 PM TARE MAN Gender Identity Not on file Sexual Orientation Not on file Plan of Treatment Health Maintenance Due Date Last Done Comments Hepatitis C Virus (HCV) Screening 1989 TdaP Immunization 1989 Hepatitis B Immunization (1 of 3 - 19+ 3-dose series) 2008 Pap Smear 2010 Cervical Cancer Screening (CCS) 2019 HPV/Cotest 2019 Influenza Immunization (#1) 2023 12/07/2017 SARS-COV-2 Immunization ( season) 2023 02/05/2021, 07/21/2020, 06/28/2020 Respiratory Syncytial Virus (RSV) Immunization (Adult) (1 - 1-dose 75+ series) 2064 Meningococcal Immunization (ACWY) Aged Out No longer eligible b ased on patient's age to complete this topic Pneumococcal Immunization Combined Aged Out No longer eligible b ased on patient's age to complete this topic Rotavirus Immunization Aged Out No lo nger eligible based on patient's age to complete this topic Insurance [employer] on file
--- OUTSIDE RECORDS SUMMARY | 2024-09-24 17:07 | XMS_ITS | Clinical Summary ---
Author Organization [facility] Address [address] [place] [address] Care Team Providers Care Machine Fancy Stitcher Name Role Phone Belia Sierra MD Primary Care Provider [phone] Allergies No known active allergies Medications FIBER OR Active Multiple Vitamins-Minera ls (WOMENS MULTI VITAMIN & MINERAL) Tab Active cholestyramine (QUESTRAN) 4 G packetIndicatio ns:Diarrhea, unspecified type Take 1 packet (4 g total) by mouth 3 (three) times daily with meals. 60 each 1 5 Active Additional Information Patient not taking.Reported on 07/19/2024 FLUoxetine (PROZAC) 20 MG capsuleIndicati ons:Anxiety TAKE 1 CAPSULE BY MOUTH EVERY DAY 30 capsule 2 5 Active polyethylene glycol-electrol ytes (NULYTELY) 420 g solutionIndicat ions:Right sided abdominal pain,Irregular bowel habits Take 4,000 mLs by mouth once for 1 dose. 4000 mL 5 08/29/19 25 Active Problems Problem Noted Date Diagnosed Date Irregular bowel habits 08/28/2024 Anxiety 04/16/2024 Irritable bowel syndrome with constipation 04/16 Chronic left-sided low back pain without sciatic a 04/16/2024 Resolved Problems Problem Noted Date Diagnosed Date Resolved Date ([facility]/HCC) 12/06/2017 03/05/20 24 Encounters Date Type Department Care Team Description 09/18/[address] [facility] - [address], [address] [place] [address] Peggy Patel NP Change in BM 09/06/2024 3:48 PM CDT - 09/06/2024 11:59 PM CDT Hospital Encounter [facility] [address] [place] [address] Peggy Patel NP Discharge Disposition: Home or Self Care (Routine Discharge) 09/06/2024 Travel 09/02/2024 [facility] [address], [address] [place] [phone] Peggy Patel NP SED RATE, ERYTHROCYTE (ESR), C-REACTIVE PROTEIN, CALPROTECTIN FECAL 08/30/2024 2:55 PM CDT - 08/30/2024 11:59 PM CDT Hospital [place] [address] Peggy Patel NP Discharge Disposition: Home or Self Care (Routine Discharge) 08/28/2024 9:30 AM CDT - 08/28/2024 11:59 PM [place] [address] Peggy Patel NP Discharge Disposition: Home or Self Care (Routine Discharge) 08/28/2024 8:40 AM CDT [facility] [address] [place] [phone] Belia Sierra MD Schaefer, Jennifer, VERONIKA New Patient (Referral IBS/D) 08/28/2024 [facility] - [address] [place] [address] Jay Real MD 08/28/2024 Travel 07/19/2024 8:20 AM CDT Office Visit [facility] [address], [address] [place] [phone] Belia Sierra MD Diarrhea (Patient states she still is having diarrhea) 07/19/2024 Travel 07/15/2024 Results Follow-Up [facility] [address], [address] [place] [phone] Belia Sierra MD MAGNESIUM, CELIAC DISEASE ANTIBODY PANEL, COMPREHENSIVE METABOLIC PANEL, CBC W/DIFF AUTOMATED 07/10/2024 Telephone [facility] [address], [address] [place] [phone] Belia Sierra MD Question 07/09/2024 4:17 PM CDT - 07/09/2024 11:59 PM CDT Hospital Encounter [facility] [address] Belia Sierra MD Discharge Disposition: Home or Self Care (Routine Discharge) 07/09/2024 Telephone [facility] [address], [address] [place] [address] Belia Sierra MD Lab Results 07/09/2024 Orders Only [facility] [place] [address] Belia Sierra MD 07/08/2024 2:30 PM CDT - 07/08/2024 11:59 PM CDT Hospital Encounter [facility] [place] [address] Belia Sierra MD Discharge Disposition: Home or Self Care (Routine Discharge) 07/08/2024 1:00 PM CDT Office Visit [facility] [place] [address], [address] [place] [phone] Belia Sierra MD Diarrhea (Patient states she has had diarrhea x 2 weeks. Patient states she has tried imodium with little relief. ) 07/08/2024 Travel from Last 3 Months Immunizations Immunization Administration Dates Next Due Dtap (Acel-Immune) 08/02/1994, 1,1989,08/11,1989 Fluarix (IIV4) 12/07/2017 Fluzone (IIV3, Trivalent, 0. 5 ML Prefilled Syringe) 04/16/2024 HPV4 (Gardasil) 07/13/2007,02/02/2007,10/25/2006 Hepatitis A (Generic) 05/21/2007,10/25/2006 Hepatitis B Pediatric 03/09/2000,10/06/1999,11/1999 Influenza Adult (Generic) 01/23/2023,11/2021,12/01/2020,12/19,02/13/2017,01/14/2015 MMR (MMRII) 06/08/2018,08/02/1994,10/30/1992 Meningococcal (Menactra) 09/07/2004 Polio IPV (Ipol) 08/02/1994, 1,1989,06/09 Tdap (Generic) 01/15/2020, 8,02/13/2017,09/09 Family History Medical History Relation Comments Autism spectrum disorder Daughter Relation Status Comments Daughter Social History Tobacco Use Types Packs/Day Years Used Date Smoking Tobacco: Never Passive Smoke Exposure: Never Smokeless Tobacco: Never Tobacco Cessation:Counseling Given: No Alcohol Use Standard Drinks/Week Comments No 0 [...] Sex Assigned at 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 Legal Sex Female 8:14 AM CDT Gender Identity 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 Sexual Orientation Straight 07/19/2024 8: 31 AM CDT Last Filed Vital Signs Vital Sign Reading Time Taken Comments Blood Pressure 121/73 08/28/2024 8:41 AM CDT Pulse 99 08/28/2024 8:41 AM CDT Temperature 36.8 C (98.3 F) 08/28/2024 8:41 AM CDT Respiratory Rate 18 08/28/2024 8:41 AM CDT Oxygen Saturation 100% 08/28/2024 8:41 AM CDT Inhaled Oxygen Concentration - - Weight 82.1 kg (181 lb) 08/28/2024 8:41 AM CDT Height 172.7 cm (5' 8) 08/28/2024 8:41 AM CDT Body Mass Index 27.52 08/28/2024 8:41 AM CDT Plan of Treatment Upcoming Encounters Date Type Department Care Team (Latest Contact Info) Description 12/27/2024 12:43 PM CDT Hospital Encounter [facility] [address] [place] [address] Jay Real MD [address] [address] 12/27/2024 12:43 PM CDT - 12/27/2024 1:13 PM CDT Surgery [facility] [address] [place] [address] Jay Real MD [address] [place] [address] COLONOSCOPY DIAGNOSTIC WITH/WITHOUT SPECIMEN BRUSH/WASH Scheduled Procedures Name Priority Associated Diagnoses Date/Ti me COLONOSCOPY DIAGNOSTIC WITH/WITHOUT SPECIMEN BRUSH/WASH Irregular bowel habits 12/27/2024 12:43 PM CDT Health Maintenance Due Date Last Done Comments Annual Physical 1992 Hepatitis C 2007 Cervical Cancer Screening Pap Smear (Age 30 to 64) Every 3 Years 09/12/2022 09/13/2019 COVID-19 Vaccine ( season) 2023 01/23/2023, 02/05/2021, 07/21/2020, Additional history exists Cervical Cancer Screening Pap with HPV Testing (Age 30 to 64) Every 5 Years 09/12/2024 09/13/2019 Cervical Cancer Screening with HPV 09/12/2024 DTaP, Tdap and Td Vaccines (10 - Td or Tdap) 01/14/2030 01/15/2020, 10/02/2017, 02/13/2017, Additional history exists Hepatitis B Vaccines Completed 03/09/2000, 10/06/1999, 08/27/1999 Meningococcal Vaccine Aged Out 09/07/2004 No faith italo eligible based on patient's age to complete this topic HPV Vaccines Completed 07/13/2007, 01/18, 10/25/2006 PHQ-2 (Physician [place]) Completed 08/28/2024 Meningococcal B Vaccine Aged Out No l onger eligible based on patient's age to complete this topic Pneumococcal Vaccine: Pediatrics (0 to 5 Years) and At-Risk Patients (6 to 49 Years) Aged Out No longer eligible based on patient's age to complete this topic RSV Immunizations Under 20 Months Aged Out No longer eligible based on patient's age to complete this topic Goals Goal Patient Goal Type Associated Problems Recent Progress Patient-Stated? Author Autogenerat ed Goal Care Plan Autogenerated Problem No Carol Ann Urena, spring intern Procedure Name Priority Date/Time Associated Diagnosis Comments CT ABD+PEL W CON Routine 09/06/2024 4:08 PM CDT Right sided abdominal pain Irregular bowel habits CALPROTECTIN FECAL Routine 08/30/2024 2: 55 PM CDT Right sided abdominal pain Irregular bowel habits C-REACTIVE PROTEIN Routine 08/28/2024 9: 33 AM CDT Right sided abdominal pain Irregular bowel habits SED RATE, ERYTHROCYTE (ESR) Routine 08/28/2024 9:33 AM CDT Right sided abdominal pain Irregular bowel habits GI PANEL PCR - STOOL Routine 07/09/2024 8:12 AM CDT Diarrhea, unspecified type CBC W/DIFF AUTOMATED Routine 07/08/2024 2:41 PM CDT Diarrhea, unspecified type Healthcare maintenance Screening for diabetes mellitus (DM) COMPREHENSIVE METABOLIC PANEL Routine 07/08/2024 2:41 PM CDT Diarrhea, unspecified type HC GAMMAGLOBULIN Routine 07/08/2024 2:41 PM CDT Diarrhea, unspecified type MAGNESIUM Routine 07/08/2024 2:41 PM CDT Diarrhea, unspecified type from Last 3 Months Results * CT ABD+PEL W CON (09/06/2024 4:08 PM CDT) Anatomical Region Laterality Modality Abdomen Computed Tomogra phy 09/09/2024 6:44 PM CDT Impressions 09/09/2024 6:47 PM CDT IMPRESSION: ===== 1. No acute abdominal or pelvic abnormalities. No CT findings to explain patient's symptoms. 2. 12 mm right ovarian cyst. Referred By: PEGGY PATEL Interpreted By: Aba Vasquez MD, 09/09/2024 6:44 PM Narrative 09/09/2024 6:47 PM [address]T [address] [address] EXAMINATION: CT Abdomen and Pelvis with contrast EXAM DATE/TIME: 09/06/2024 4:00 PM REASON FOR EXAM: r/o intestinal inflammation Irregular bowel habits. Right-sided abdominal pain COMPARISON: 12/09/2023 CT abdomen and pelvis TECHNIQUE: Axial CT images of the abdomen and pelvis are obtained following uneventful intravenous administration of 100 cc Isovue-370. Subsequent coronal and sagittal reformatted sequences are created for evaluation. A dose lowering technique was used for this procedure, which may include, but is not limited to, dose reduction technique, automated exposure control, iterative reconstruction, ALARA (As Low As Reasonably Achievable), or Image Gently techniques. FINDINGS: Calcified granuloma right lateral lung base. No pleural effusion. Heart size normal. No pericardial effusion. Liver and spleen normal in size and surface contour. No abnormal enhancing hepatic lesions. Tiny subcentimeter cystic lesion in the mid lateral aspect of the left hepatic lobe is stable from prior study. Gallbladder pancreas and adrenal glands unremarkable. Kidneys demonstrate symmetric uptake of contrast. No hydronephrosis or obstructive uropathy on either side. Abdominal aorta normal in caliber throughout. Bowel is normal in caliber throughout. No evidence of bowel obstruction. No free fluid in the pelvis. Bladder contours are smooth. Uterus and adnexal structures have unremarkable CT appearance apart from 12 mm cyst in the right ovary. Bone level imaging shows no acute osseous abnormality. Appendix not definitively identified. No secondary findings of appendicitis. ===== Procedure Note Aba Vasquez MD - 09/09/[address] [address] EXAMINATION: CT Abdomen and Pelvis with contrast EXAM DATE/TIME: 09/06/2024 4:00 PM REASON FOR EXAM: r/o intestinal inflammation Irregular bowel habits. Right-sided abdominal pain COMPARISON: 12/09/2023 CT abdomen and pelvis TECHNIQUE: Axial CT images of the abdomen and pelvis are obtainedfollowing uneventful intravenous administration of 100 cc Isovue-370.Subsequent coronal and sagittal reformatted sequences are created forevaluation. A dose lowering technique was used for this procedure, whichmay include, but is not limited to, dose reduction technique, automatedexposure control, iterative reconstruction, ALARA (As Low As ReasonablyAchievable), or Image Gently techniques. FINDINGS: Calcified granuloma right lateral lung base. No pleuraleffusion. Heart size normal. No pericardial effusion. Liver and spleen normal in size and surface contour. No abnormalenhancing hepatic lesions. Tiny subcentimeter cystic lesion in the midlateral aspect of the left hepatic lobe is stable from prior study.Gallbladder pancreas and adrenal glands unremarkable. Kidneys demonstratesymmetric uptake of contrast. No hydronephrosis or obstructive uropathyon either side. Abdominal aorta normal in caliber throughout. Bowel isnormal in caliber throughout. No evidence of bowel obstruction. No freefluid in the pelvis. Bladder contours are smooth. Uterus and adnexalstructures have unremarkable CT appearance apart from 12 mm cyst in theright ovary. Bone level imaging shows no acute osseous abnormality.Appendix not definitively identified. No secondary findings ofappendicitis. ===== IMPRESSION: ===== 1. No acute abdominal or pelvic abnormalities. No CT findings to explainpatient's symptoms. 2. 12 mm right ovarian cyst. Referred By: PEGGY PATEL Interpreted By: Aba Vasquez MD, 09/09/2024 6:44 PM Peggy Patel SET UP WORKER CT Final Resul t * CALPROTECTIN FECAL (08/30/2024 2:55 PM CDT) CALPROTECTIN (STOOL) 9 mcg/g 09/07/2024 12:02 AM CDT [facility] Comment: Reference Range: <50 Normal 50-120 Borderline >120 Elevated Calprotectin in Crohn's disease and ulcerative colitis can be five to several thousand times above the reference population (50 mcg/g or less). Levels are usually 50 mcg/g or less in healthy patients and with irritable bowel syndrome. Repeat testing in 4-6 weeks is suggested for borderline values. Test performed by [facility] [id number] [place] [address] Accounts Payable Specialist: Silvia Steinberg MD,PHD,JING Test Reported by [facility] [facility], [facility], [address] [place] [address] Jermain Denis M.D., Ph.D., Director of Laboratories [facility] [id number] STOOL SPECIMEN / Unknown 08/30/2024 2:55 PM CDT Peggy Patel NP BODY FLUIDS AND STOOLS ABDIRASHID WIGGINS Final Result [facility] [address] [place] [address], [place] [phone] * SED RATE, ERYTHROCYTE (ESR) (08/28/2024 9:33 AM CDT) Pathologist [facility] [place] ESR <1 <20 MM/HR 08/28/2024 1:17 PM CDT [facility] Comment:Testing performed on Maria D iSDANIA. 08/28/2024 9:33 AM CDT Peggy Patel NP LABORATORY Final Resul t Performing Organization Address City/[facility] Co de Phone Number [facility] [address] [place] [address], [place] [phone] * C-REACTIVE PROTEIN (08/28/2024 9:33 AM CDT) [facility] C-REACTIVE PROTEIN <0.29 <0.29 mg/dL 08/28/2024 12:14 PM CDT [facility] 08/28/2024 9:33 AM CDT Peggy Patel NP LABORATORY Final Resul t Performing Organization Address City/[facility] Co de Phone Number [facility] [address] [place] [address], [place] [phone] * (ABNORMAL) GI PANEL PCR - STOOL (07/09/2024 8:12 AM CDT) Pathologist [facility] [place] CAMPYLOBACTER PCR (STOOL) DETECTED(AA ) NOT DETECTED 07/09/2024 6:39 PM CDT [facility] Comment:RESULTS SENT VIA DOC HALO TO BELIA SIERRA MD AT 18:37 ON 07/09/2024 [facility] PLESI[facility] SHIGELLOIDES PCR (STOOL) NOT DETECTED NOT DETECTED 07/09/2024 6:39 PM CDT [facility] SALMONELLA PCR (STOOL) NOT DETECTED NOT DETECTED 07/09/2024 6:39 PM CDT [facility] VIBRIO PCR (STOOL) NOT DETECTED NOT DETECTED 07/09/2024 6:39 PM CDT [facility] VIBRIO CHOLERAE PCR (STOOL) NOT DETECTED NOT DETECTED 07/09/2024 6:39 PM CDT [facility] YERSINIA ENTEROCOLITICA PCR (STOOL) NOT DETECTED NOT DETECTED 07/09/2024 6:39 PM CDT [facility] ENTEROAGGREGATIVE ECOLI PCR (STOOL) NOT DETECTED NOT DETECTED 07/09/2024 6:39 PM CDT [facility] ENTEROPATHOGENIC ECOLI PCR (STOOL) NOT DETECTED NOT DETECTED 07/09/2024 6:39 PM CDT [facility] ENTEROTOXIGENIC ECOLI PCR (STOOL) NOT DETECTED NOT DETECTED 07/09/2024 6:39 PM CDT [facility] SHIGA LIKE TOXIN ECOLI PCR (STOOL) NOT DETECTED NOT DETECTED 07/09/2024 6:39 PM CDT [facility] SHIG/ENTEROINVASIVE ECOLI PCR (STOOL) NOT DETECTED NOT DETECTED 07/09/2024 6:39 PM CDT [facility] CRYPTOSPORIDIUM PCR (STOOL) NOT DETECTED NOT DETECTED 07/09/2024 6:39 PM CDT [facility] CYCLOSPORA CAYETANENSIS PCR (STOOL) NOT DETECTED NOT DETECTED 07/09/2024 6:39 PM CDT [facility] ENTAMOEBA HISTOLYTICA PCR (STOOL) NOT DETECTED NOT DETECTED 07/09/2024 6:39 PM CDT [facility] GIARDIA LAMBLIA PCR (STOOL) NOT DETECTED NOT DETECTED 07/09/2024 6:39 PM CDT [facility] ADENOVIRUS F40/41 PCR (STOOL) NOT DETECTED NOT DETECTED 07/09/2024 6:39 PM CDT [facility] ASTROVIRUS PCR (STOOL) NOT DETECTED NOT DETECTED 07/09/2024 6:39 PM CDT [facility] NOROVIRUS GI/GII PCR (STOOL) NOT DETECTED NOT DETECTED 07/09/2024 6:39 PM CDT [facility] ROTAVIRUS A PCR (STOOL) NOT DETECTED NOT DETECTED 07/09/2024 6:39 PM CDT [facility] SAPOVIRUS PCR (STOOL) NOT DETECTED NOT DETECTED 07/09/2024 6:39 PM CDT [facility] STOOL SPECIMEN / Unknown 07/09/2024 8:12 AM CDT Belia Sierra MD MICROBIOLOGY - GENERAL ORDERA BLES Final Result [facility] [address] [place] [id number], * (ABNORMAL) COMPREHENSIVE METABOLIC PANEL (07/08/2024 2:41 PM CDT) Pathologist [facility] [place] GLUCOSE 102(H) 70 - 99 MG/DL 07/08/2024 3:32 PM CDT [facility] BUN 11 7 - 18 MG/DL 07/08/2024 3:32 PM CDT [facility] CREATININE S/P/B 0.88 0.55 - 1.02 MG/DL 07/08/2024 3:32 PM CDT [facility] SODIUM S/P/B 139 136 - 145 MMOL/L 07/08/2024 3:32 PM CDT [facility] POTASSIUM S/P/B 4.3 3.5 - 5.1 MMOL/L 07/08/2024 3:32 PM CDT [facility] CHLORIDE S/P/B 105 97 - 115 MMOL/L 07/08/2024 3:32 PM CDT [facility] CO2 27.6 21 - 32 MMOL/L 07/08/2024 3:32 PM CDT [facility] CALCIUM S/P/B 8.9 8.5 - 10.1 MG/DL 07/08/2024 3:32 PM CDT [facility] BILIRUBIN TOTAL S/P/B 0.3 0.2 - 1.2 MG/DL 07/08/2024 3:32 PM CDT [facility] Comment: THIS ASSAY IS NOT RECOMMENDED FOR PATIENTS UNDERGOING TREATMENT WITH ELTROMBOPAG DUE TO THE POTENTIAL FOR FALSELY ELEVATED RESULTS. TOTAL PROTEIN S/P/B 7.1 6.4 - 8.2 G/DL 07/08/2024 3:32 PM CDT [facility] ALBUMIN S/P/B 4.0 3.4 - 5.0 G/DL 07/08/2024 3:32 PM CDT [facility] AST 22 15 - 37 U/L 07/08/2024 3:32 PM CDT [facility] ALT 13(L) 14 - 55 U/L 07/08/2024 3:32 PM CDT [facility] ALKALINE PHOSPHATASE S/P/B 68 50 - 136 U/L 07/08/2024 3:32 PM CDT [facility] ANION GAP 6.4 2 - 10 MMOL/L 07/08/2024 3:32 PM CDT [facility] BUN CREATININE RATIO 12.5 6 - 26 07/08/2024 3:32 PM CDT [facility] A/G RATIO 1.3 1.0 - 2.0 RATIO 07/08/2024 3:32 PM CDT [facility] GFR ESTIMATE 88(L) >90 ML/MIN/1.7 3 M2 07/08/2024 3:32 PM CDT [facility] Comment: NOTE: eGFR is not calculated for patients <18 years of age or gender unknown. This is an estimated GFR calculation using the new CKD EPI creatinine equation without race and so does not require a correction factor for race. This estimated GFR should not be used for calculating drug doses. 07/08/2024 2:41 PM CDT Belia Sierra MD LABORATORY Final Result [facility] [address] [place] [address], * CELIAC DISEASE ANTIBODY PANEL (07/08/2024 2:41 PM CDT) Pathologist [facility] [place] Additional Test Information REPORT 07/15/2024 8:56 AM CDT [facility] Comment: !Assay ! AGA ! AGA ! TTG ! APPLE ! TOTAL ! ! ! IgG ! IgA ! IgA ! IgA ! IgA ! !Result ! - ! - ! - ! - ! NORMAL! (EQ=equivocal, ND=not detected, N=not interpretable, D=deficient, TNP=not performed) Summary Interpretation: Results do not support a diagnosis of celiac disease. Please note that it is assumed that this patient has been on gluten sufficient diet before testing. IGA 82 47 - 310 mg/dL 07/15/2024 8:56 AM CDT [facility] DEAMIDATED GLIADIN IGG <1.0 <15.0 U/mL 07/15/2024 8:56 AM CDT [facility] Comment: Value Interpretation <15.0 Antibody not detected > or = 15.0 Antibody detected DEAMIDATED GLIADIN IGA <1.0 <15.0 U/mL 07/15/2024 8:56 AM CDT [facility] Comment: Value Interpretation <15.0 Antibody not detected > or = 15.0 Antibody detected TISSUE TRANSGLUTAMINASE IGA AB <1.0 <15.0 U/mL 07/15/2024 8:56 AM CDT [facility] Comment: Value Interpretation <15.0 Antibody not detected > or = 15.0 Antibody detected ENDOMYSIAL IGA Negative Negative 07/15/2024 8:56 AM CDT [facility] Comment: Test Performed by [place], [facility], [address] [place], [place] Jermain Denis M.D., Ph.D., Director of Laboratories , [facility] [id number] 07/08/2024 2:41 PM CDT us Belia Sierra MD LABORATORY Final Result [facility] [id number] [place] [address], * (ABNORMAL) CBC W/DIFF AUTOMATED (07/08/2024 2:41 PM CDT) WBC 6.16 4.5 - 11.0 x10'3/uL 07/08/2024 3:06 PM CDT [facility] RBC 4.19(L) 4.20 - 5.40 x10'6/uL 07/08/2024 3:06 PM CDT [facility] HGB 13.0 12.0 - 16.0 G/DL 07/08/2024 3:06 PM CDT [facility] HCT 39.2 38.0 - 48.0 % 07/08/2024 3:06 PM CDT [facility] MCV 93.6 81.0 - 99.0 FL 07/08/2024 3:06 PM CDT [facility] MCH 31.0 27.0 - 31.0 PG 07/08/2024 3:06 PM CDT [facility] MCHC 33.2 32.0 - 36.0 G/DL 07/08/2024 3:06 PM CDT [facility] RDW 12.5 11.5 - 14.5 % 07/08/2024 3:06 PM CDT [facility] PLT 203 130 - 400 x10'3/uL 07/08/2024 3:06 PM CDT [facility] MPV 9.9 9.3 - 12.2 FL 07/08/2024 3:06 PM CDT [facility] DIFFERENTIAL TYPE AUTOMATED DIFFERENTIAL 07/08/2024 3:06 PM CDT [facility] NEUTROPHILS % 65.9 % 07/08/2024 3:06 PM CDT [facility] LYMPHOCYTES % 23.2 % 07/08/2024 3:06 PM CDT [facility] MONOCYTES % 7.8 % 07/08/2024 3:06 PM CDT [facility] EOSINOPHILS 2.4 % 07/08/2024 3:06 PM CDT [facility] BASOPHILS 0.5 % 07/08/2024 3:06 PM CDT [facility] IMMATURE GRANS % 0.2 % 07/09/19 3:06 PM CDT [facility] ABS. NEUTROPHILS 4.06 1.80 - 7.70 x10'3/uL 07/08/2024 3:06 PM CDT [facility] ABS. LYMPHOCYTES 1.43 1.00 - 4.80 x10'3/uL 07/08/2024 3:06 PM CDT [facility] ABS. MONOCYTES 0.48 0.24 - 0.86 x10'3/uL 07/08/2024 3:06 PM CDT [facility] ABS. EOSINOPHILS 0.15 0.04 - 0.36 x10'3/uL 07/08/2024 3:06 PM CDT [facility] ABS. BASOPHILS 0.03 0.01 - 0.08 x10'3/uL 07/08/2024 3:06 PM CDT [facility] ABS. IMMATURE GRANULOCYTES 0.01 0.00 - 0.49 x10'3/uL 07/08/2024 3:06 PM CDT [facility] 07/08/2024 2:41 PM CDT Belia Sierra MD LABORATORY Final Result [facility] [address] [place] [address], * MAGNESIUM (07/08/2024 2:41 PM CDT) MAGNESIUM 2.1 1.8 - 2.4 MG/DL 07/08/2024 3:32 PM CDT [facility] 07/08/2024 2:41 PM CDT Belia Sierra MD LABORATORY Final Result [facility] [address] [place] [address], [place] [phone] from Last 3 Months Additional Health Concerns Active Problems Noted Date Diagnosed Date Autogenerated Problem 08/29/2024 Insurance GE Care Teams Machine Fancy Stitcher Relationship Specialty Start Date End Date Belia Sierra MD [address] [place] [address] PCP - General FAMILY PRACTICE 03/05/24
[2024-09-24 17:11] VITALS: BP 125/68; PULSE 83; RESP 16; TEMP 36.7; O2SAT 100
--- OUTSIDE RECORDS SUMMARY | 2024-09-24 17:54 | XMS_ITS | Clinical Summary ---
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
--- OUTSIDE RECORDS SUMMARY | 2024-09-24 17:54 | XMS_ITS | Encounter Summary ---
Author Organization [facility] Address [address] [place] [address] Care Team Providers Care Functional Tester Typewriters Name Role Phone Belia Sierra MD Primary Care Provider [phone] Encounter Details Date Type Department Care Team (Late st Contact Info) Description 09/18/2024 SCL Elements acquired by [employer] Electrict Message Enc [facility] Medical Group Multispecialty Care - [facility] [address], [address] [place] [address] Peggy Patel NP 3 [facility] [address] [place] [address] Change in BM Social History Tobacco Use [...] Sex Assigned at Female 04/16/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 Legal Sex Female 8:14 AM CDT Gender Identity Female 04/16/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 Sexual Orientation Straight 07/19/2024 8: 31 AM CDT documented as of this encounter Plan of Treatment Upcoming Encounters Date Type Department Care Team (Latest Contact Info) Description 12/27/2024 12:43 PM CDT Hospital Encounter [facility] [address] [place] [address] Jay Real MD 3 [facility] [address] [place] [address] 12/27/2024 12:43 PM CDT - 12/27/2024 1:13 PM CDT Surgery [facility] [address] [place] [address] Jay Real MD 3 [facility] [address] [place] [address] COLONOSCOPY DIAGNOSTIC WITH/WITHOUT SPECIMEN BRUSH/WASH Scheduled Procedures [...] Total Score: 0 05/22/19 25 4:55 PM 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 documented as of this encounter Care Teams Functional Tester Typewriters Relationship Specialty Start Date End Date Belia Sierra MD [facility] [address] [address] PCP - General FAMILY PRACTICE 03/05/24 documented as of this encounter
--- OUTSIDE RECORDS SUMMARY | 2024-09-24 17:54 | XMS_ITS | Encounter Summary ---
Author Organization [facility] Address [address] [place] [address] Phone Care Team Providers Care Air Reduction Equipment Operator Name Role Phone Unavailable Primary Care Provider Unavailabl e Encounter Details Date Type Department Care Team (Late st Contact Info) Description 03/31/2022 Lab Requisition [facility] [address] [place] [address] Braeden Tabares MD [address] [place] [address] [address] [place] [address] Encounter for screening for COVID-19 Social History Tobacco Use Types Packs/Day Years Used Date Smoking Tobacco: Never Assessed Comments Unknown Sex and Gender Information Value Date Recorded Sex Assigned at Not on file Legal Sex Female 1:53 PM CLOTH SHRINKING MACHINE OPERATOR Gender Identity Not on file Sexual Orientation Not on file documented as of this encounter Plan of Treatment Not on file documented as of this encounter Procedures Procedure Name Priority Date/Time Associated Diagnosis Comments SARS-COV-2 BY MOLECULAR Routine 03/31/2022 8:31 AM CLOTH SHRINKING MACHINE OPERATOR Encounter for screening for COVID-19 documented in this encounter Results * SARS-COV-2 BY MOLECULAR (03/31/2022 8:31 AM CLOTH SHRINKING MACHINE OPERATOR) SARSCOV2 NOT DETECTED (Referen ce Range for this test is Not Detected ) [facility]ER[facility] FAST DX 04/01/2022 6:43 AM CLOTH SHRINKING MACHINE OPERATOR [facility] Comment:This test was perfor med by a RT-PCR method. Other Non-Phlebotomy Collection / Unknown 03/31/2022 8:31 AM CLOTH SHRINKING MACHINE OPERATOR 03/31/2022 11:14 AM CLOTH SHRINKING MACHINE OPERATOR Narrative [facility] - 04/01/2022 6:43 AM CLOTH SHRINKING MACHINE OPERATOR Authorized Fact Sheets about this test for providers and patients are available at: https://www.fda.gov/medical-devices/tgoccbhfm-ttxinsuswf-tejotks-devices/emergen -us e-authorizations us Braeden Tabares MD MICROBIOLOGY - GENERAL ORDERAB LES Final Result [facility] [address] [place] [address], documented in this encounter Visit Diagnoses Diagnosis Encounter for screening for COVID-19 documented in this encounter Additional Health Concerns Infection Onset Date Last Indicated Resolved Time COVID - 19 03/24/2022 03/31/2022 04/10/2022 12:1 6 AM CLOTH SHRINKING MACHINE OPERATOR documented as of this encounter
--- OUTSIDE RECORDS SUMMARY | 2024-09-24 17:54 | XMS_ITS | Referral Summary ---
Author Organization [facility] Address [address] [place] [address] Care Team Providers Care Medical Record Transcriber Name Role Phone Jessica Browne MD Primary Care Provider + Jessica Browne MD Unavailable [phone] Allergies No known active allergies Medications sertraline [...] file Legal Sex Female 5:36 PM DIRECT SERVICE PROFESSIONAL Gender Identity Not on file Sexual Orientation [...] Plan of Treatment Not on file Insurance [facility] CHOICE PLUS [facility] Care Teams Medical Record Transcriber Relationship Specialty Start Date End Date Jessica Browne MD [address] [place] [address] PCP - General Family Medicine 05/24/21 Jessica Browne MD [address] [place] [address] Family Medicine 05/24/21
--- OUTSIDE RECORDS SUMMARY | 2024-09-24 17:54 | XMS_ITS | Clinical Summary ---
Author Organization [facility] Address [address] [place] [address] Care Team Providers Care Car Ferry Master Name Role Phone Unavailable Primary Care Provider Unavailabl e Social History Tobacco Use Types Packs/Day Years Used Date Smoking Tobacco: Never Assessed Comments Unknown Sex and Gender Information Value Date Recorded Sex Assigned at Not on file Legal Sex Female 1:53 PM COMPLAINT ANALYST Gender Identity Not on file Sexual Orientation [...]
--- OUTSIDE RECORDS SUMMARY | 2024-09-24 17:54 | XMS_ITS | Clinical Summary ---
Author Organization [facility] Address [address] [place] [address] Care Team Providers Care Senior Mechanical Estimator Name Role Phone Belia Sierra MD Primary Care Provider [phone] Allergies No known active allergies Medications FIBER [...] Problem Noted Date Diagnosed Date Resolved Date ([facility]) 12/06/2017 03/05/20 24 Encounters Date Type Department Care Team Description 09/18/2024 MyChart Message Enc [facility] Medical [facility] Multispecialty Care - [address], [address] [place] [address] Peggy Patel NP Change in BM 09/06/2024 3:48 PM CDT - 09/06/2024 11:59 PM CDT Hospital Encounter [facility] [address] [place] [address] Peggy Patel NP Discharge Disposition: Home or Self Care (Routine Discharge) 09/06/2024 Travel 09/02/2024 Results [facility] [address], [address] [place] [address] Peggy Patel NP SED RATE, ERYTHROCYTE (ESR), C-REACTIVE PROTEIN, CALPROTECTIN FECAL 08/30/2024 2:55 PM CDT - 08/30/2024 11:59 PM CDT Hospital Encounter [facility] [address] [place] [place] [address] Peggy Patel NP Discharge Disposition: Home or Self Care (Routine Discharge) 08/28/2024 9:30 AM CDT - 08/28/2024 11:59 PM [place] [address] Peggy Patel NP Discharge Disposition: Home or Self Care (Routine Discharge) 08/28/2024 8:40 AM CDT [facility] [address] [place] [address] Belia Sierra MD Schaefer, Jennifer, VERONIKA New Patient (Referral IBS/D) 08/28/2024 Orders Only [facility] - [address] [place] [address] Jay Real MD 08/28/2024 Travel 07/19/2024 8:20 AM CDT Office Visit [facility] [address], [address] [place] [address] Belia Sierra MD Diarrhea (Patient states she still is having diarrhea) 07/19/2024 Travel 07/15/2024 Results Follow-Up [facility] [address], [address] [place] [address] Belia Sierra MD MAGNESIUM, CELIAC DISEASE ANTIBODY PANEL, COMPREHENSIVE METABOLIC PANEL, CBC W/DIFF AUTOMATED 07/10/2024 Telephone [facility] [address], [address] [place] [address] Belia Sierra MD Question 07/09/2024 4:17 PM CDT - 07/09/2024 11:59 PM CDT Hospital Encounter [facility] [address] [place] [address] Belia Sierra MD Discharge Disposition: Home or Self Care (Routine Discharge) 07/09/2024 Telephone [facility] [address], [address] [place] [address] Belia Sierra MD Lab Results 07/09/2024 Orders Only [facility] [address] [place] [address] Belia Sierra MD 07/08/2024 2:30 PM CDT - 07/08/2024 11:59 PM CDT Hospital Encounter [facility] [address] [place] [address] Belia Sierra MD Discharge Disposition: Home or Self Care (Routine Discharge) 07/08/2024 1:00 PM CDT Office Visit [facility] Medical Group Family Medicine [place] [address] [place] [phone] Belia Sierra MD Diarrhea (Patient states she [...] Sex Assigned at Female 04/16/2024 9:58 AM VIDEO PLAYER MECHANIC Legal Sex Female 8:14 AM CDT Gender Identity Female 04/16/2024 9:58 AM VIDEO PLAYER MECHANIC Sexual Orientation Straight 07/19/2024 8: 31 [...] Description 12/27/2024 12:43 PM CDT Hospital Encounter [facility] [address] [place] [address] Jay Real MD [address] [address] 12/27/2024 12:43 PM CDT - 12/27/2024 1:13 PM CDT Surgery [facility] [address] [place] [address] Jay Real MD [address] [place] [address] COLONOSCOPY DIAGNOSTIC WITH/WITHOUT SPECIMEN BRUSH/WASH Scheduled Procedures [...] Vaccines Completed 07/13/2007, 01/18, 10/25/2006 PHQ-2 (Physician [place]) Completed 08/28/2024 Meningococcal B Vaccine Aged Out [...] Plan Autogenerated Problem No Carol Ann Urena, compressor technician Procedure Name Priority Date/Time Associated Diagnosis Comments [...] 6:44 PM Narrative 09/09/2024 6:47 PM [address]T [address] [address] EXAMINATION: CT Abdomen and Pelvis with contrast [...] Procedure Note Aba Vasquez MD - 09/09/[address] [address] EXAMINATION: CT Abdomen and Pelvis with contrast [...] Vasquez MD, 09/09/2024 6:44 PM Peggy Patel CRAYON PAINTER CT Final Resul t * CALPROTECTIN FECAL (08/30/2024 2:55 PM CDT) CALPROTECTIN (STOOL) 9 mcg/g 09/07/2024 12:02 AM CDT [facility] Comment: Reference Range: <50 Normal 50-120 Borderline >120 Elevated Calprotectin in Crohn's disease and ulcerative colitis can be five to several thousand times above the reference population (50 mcg/g or less). Levels are usually 50 mcg/g or less in healthy patients and with irritable bowel syndrome. Repeat testing in 4-6 weeks is suggested for borderline values. Test performed by [facility] [id number] [facility] [address] Identity Access Management Architect: Silvia Steinberg MD,PHD,JING Test Reported by [employer], [facility], [address] [place] [address] Jermain Denis M.D., Ph.D., Director of Laboratories [facility] [id number] STOOL SPECIMEN / Unknown 08/30/2024 2:55 PM CDT Peggy Patel NP BODY FLUIDS AND STOOLS ABDIRASHID WIGGINS Final Result [address] [facility] [address] [place] [address], [place] [phone] * SED RATE, ERYTHROCYTE (ESR) (08/28/2024 9:33 AM CDT) Pathologist [facility] ESR <1 <20 MM/HR 08/28/2024 1:17 PM CDT [facility] Comment:Testing performed on Maria D iSDANIA. 08/28/2024 9:33 AM CDT Peggy Patel NP LABORATORY Final Resul t Performing Organization Address City/[facility] Co de Phone Number [facility] [address] [place] [address], [place] [phone] * C-REACTIVE PROTEIN (08/28/2024 9:33 AM CDT) [facility] C-REACTIVE PROTEIN <0.29 <0.29 mg/dL 08/28/2024 12:14 PM CDT [facility] 08/28/2024 9:33 AM CDT Peggy Patel NP LABORATORY Final Resul t Performing Organization Address City/[facility] Co de Phone Number [facility] [address] [place] [address], [place] [phone] * (ABNORMAL) GI PANEL PCR - STOOL (07/09/2024 8:12 AM CDT) Pathologist [facility] CAMPYLOBACTER PCR (STOOL) DETECTED(AA ) NOT DETECTED 07/09/2024 6:39 PM CDT [facility] Comment:RESULTS SENT VIA DOC HALO TO BELIA SIERRA MD AT 18:37 ON 07/09/2024 [facility] PLESIOMONAS SHIGELLOIDES PCR (STOOL) NOT DETECTED NOT DETECTED 07/09/2024 6:39 PM CDT [facility] SALMONELLA PCR (STOOL) NOT DETECTED NOT DETECTED 07/09/2024 6:39 PM CDT [facility] VIBRIO PCR (STOOL) NOT DETECTED NOT DETECTED 07/09/2024 6:39 PM CDT [facility] VIBRIO CHOLERAE PCR (STOOL) NOT DETECTED NOT DETECTED 07/09/2024 6:39 PM CDT [facility] YERSINIA ENTEROCOLITICA PCR (STOOL) NOT DETECTED NOT DETECTED 07/09/2024 6:39 PM CDT [facility] ENTEROAGGREGATIVE ECOLI PCR (STOOL) NOT DETECTED NOT DETECTED 07/09/2024 6:39 PM CDT [facility] ENTEROPATHOGENIC ECOLI PCR (STOOL) NOT DETECTED NOT DETECTED 07/09/2024 6:39 PM CDT [facility] ENTEROTOXIGENIC ECOLI PCR (STOOL) NOT DETECTED NOT DETECTED 07/09/2024 6:39 PM CDT [facility] SHIGA LIKE TOXIN ECOLI PCR (STOOL) NOT DETECTED NOT DETECTED 07/09/2024 6:39 PM CDT [facility] SHIG/ENTEROINVASIVE ECOLI PCR (STOOL) NOT DETECTED NOT DETECTED 07/09/2024 6:39 PM CDT [facility] CRYPTOSPORIDIUM PCR (STOOL) NOT DETECTED NOT DETECTED 07/09/2024 6:39 PM CDT [facility] CYCLOSPORA CAYETANENSIS PCR (STOOL) NOT DETECTED NOT DETECTED 07/09/2024 6:39 PM CDT [facility] ENTAMOEBA HISTOLYTICA PCR (STOOL) NOT DETECTED NOT DETECTED 07/09/2024 6:39 PM CDT [facility] GIARDIA LAMBLIA PCR (STOOL) NOT DETECTED NOT DETECTED 07/09/2024 6:39 PM CDT [facility] ADENOVIRUS F40/41 PCR (STOOL) NOT DETECTED NOT DETECTED 07/09/2024 6:39 PM CDT [facility] ASTROVIRUS PCR (STOOL) NOT DETECTED NOT DETECTED 07/09/2024 6:39 PM CDT [facility] NOROVIRUS GI/GII PCR (STOOL) NOT DETECTED NOT DETECTED 07/09/2024 6:39 PM CDT [facility] ROTAVIRUS A PCR (STOOL) NOT DETECTED NOT DETECTED 07/09/2024 6:39 PM CDT [facility] SAPOVIRUS PCR (STOOL) NOT DETECTED NOT DETECTED 07/09/2024 6:39 PM CDT [facility] STOOL SPECIMEN / Unknown 07/09/2024 8:12 AM CDT Belia Sierra MD MICROBIOLOGY - GENERAL ORDERA BLES Final Result [facility] [address] [place] [id number], * (ABNORMAL) COMPREHENSIVE METABOLIC PANEL (07/08/2024 2:41 PM CDT) Pathologist [facility] GLUCOSE 102(H) 70 - 99 MG/DL 07/08/2024 3:32 PM CDT [facility] BUN 11 7 - 18 MG/DL 07/08/2024 3:32 PM CDT [facility] CREATININE S/P/B 0.88 0.55 - 1.02 MG/DL 07/08/2024 3:32 PM CDT [facility] SODIUM S/P/B 139 136 - 145 MMOL/L 07/08/2024 3:32 PM CDT [facility] POTASSIUM S/P/B 4.3 3.5 - 5.1 MMOL/L 07/08/2024 3:32 PM CDT [facility] CHLORIDE S/P/B 105 97 - 115 MMOL/L 07/08/2024 3:32 PM CDT [facility] CO2 27.6 21 - 32 MMOL/L 07/08/2024 3:32 PM CDT [facility] CALCIUM S/P/B 8.9 8.5 - 10.1 MG/DL 07/08/2024 3:32 PM CDT [facility] BILIRUBIN TOTAL S/P/B 0.3 0.2 - 1.2 MG/DL 07/08/2024 3:32 PM CDT [facility] Comment: THIS ASSAY IS NOT RECOMMENDED FOR PATIENTS UNDERGOING TREATMENT WITH ELTROMBOPAG DUE TO THE POTENTIAL FOR FALSELY ELEVATED RESULTS. TOTAL PROTEIN S/P/B 7.1 6.4 - 8.2 G/DL 07/08/2024 3:32 PM CDT [facility] ALBUMIN S/P/B 4.0 3.4 - 5.0 G/DL 07/08/2024 3:32 PM CDT [facility] AST 22 15 - 37 U/L 07/08/2024 3:32 PM CDT [facility] ALT 13(L) 14 - 55 U/L 07/08/2024 3:32 PM CDT [facility] ALKALINE PHOSPHATASE S/P/B 68 50 - 136 U/L 07/08/2024 3:32 PM CDT [facility] ANION GAP 6.4 2 - 10 MMOL/L 07/08/2024 3:32 PM CDT [facility] BUN CREATININE RATIO 12.5 6 - 26 07/08/2024 3:32 PM CDT [facility] A/G RATIO 1.3 1.0 - 2.0 RATIO 07/08/2024 3:32 PM CDT [facility] GFR ESTIMATE 88(L) >90 ML/MIN/1.7 3 M2 07/08/2024 3:32 PM CDT [facility] Comment: NOTE: eGFR is not calculated for patients <18 years of age or gender unknown. This is an estimated GFR calculation using the new CKD EPI creatinine equation without race and so does not require a correction factor for race. This estimated GFR should not be used for calculating drug doses. 07/08/2024 2:41 PM CDT Belia Sierra MD LABORATORY Final Result [facility] [address] [place] [address], * CELIAC DISEASE ANTIBODY PANEL (07/08/2024 2:41 PM CDT) Pathologist [facility] Additional Test Information REPORT 07/15/2024 8:56 AM CDT [facility] Comment: !Assay ! AGA [...] - 310 mg/dL 07/15/2024 8:56 AM CDT [facility] DEAMIDATED GLIADIN IGG <1.0 <15.0 U/mL 07/15/2024 8:56 AM CDT [facility] Comment: Value Interpretation <15.0 Antibody not detected > or = 15.0 Antibody detected DEAMIDATED GLIADIN IGA <1.0 <15.0 U/mL 07/15/2024 8:56 AM CDT [facility] Comment: Value Interpretation <15.0 Antibody not detected > or = 15.0 Antibody detected TISSUE TRANSGLUTAMINASE IGA AB <1.0 <15.0 U/mL 07/15/2024 8:56 AM CDT [facility] Comment: Value Interpretation <15.0 Antibody not detected > or = 15.0 Antibody detected ENDOMYSIAL IGA Negative Negative 07/15/2024 8:56 AM CDT [facility] Comment: Test Performed by [place], [facility], [address] [place], [place] Jermain Denis M.D., Ph.D., Director of Laboratories , [facility] [id number] 07/08/2024 2:41 PM CDT us Belia Sierra MD LABORATORY Final Result [facility] [id number] [place] [address], * (ABNORMAL) CBC W/DIFF AUTOMATED (07/08/2024 2:41 PM CDT) WBC 6.16 4.5 - 11.0 x10'3/uL 07/08/2024 3:06 PM CDT [facility] RBC 4.19(L) 4.20 - 5.40 x10'6/uL 07/08/2024 3:06 PM CDT [facility] HGB 13.0 12.0 - 16.0 G/DL 07/08/2024 3:06 PM CDT [facility] HCT 39.2 38.0 - 48.0 % 07/08/2024 3:06 PM CDT [facility] MCV 93.6 81.0 - 99.0 FL 07/08/2024 3:06 PM CDT [facility] MCH 31.0 27.0 - 31.0 PG 07/08/2024 3:06 PM CDT [facility] MCHC 33.2 32.0 - 36.0 G/DL 07/08/2024 3:06 PM CDT [facility] RDW 12.5 11.5 - 14.5 % 07/08/2024 3:06 PM CDT [facility] PLT 203 130 - 400 x10'3/uL 07/08/2024 3:06 PM CDT [facility] MPV 9.9 9.3 - 12.2 FL 07/08/2024 3:06 PM CDT [facility] DIFFERENTIAL TYPE AUTOMATED DIFFERENTIAL 07/08/2024 3:06 PM CDT [facility] NEUTROPHILS % 65.9 % 07/08/2024 3:06 PM CDT [facility] LYMPHOCYTES % 23.2 % 07/08/2024 3:06 PM CDT [facility] MONOCYTES % 7.8 % 07/08/2024 3:06 PM CDT [facility] EOSINOPHILS 2.4 % 07/08/2024 3:06 PM CDT [facility] BASOPHILS 0.5 % 07/08/2024 3:06 PM CDT [facility] IMMATURE GRANS % 0.2 % 07/09/19 3:06 PM CDT [facility] ABS. NEUTROPHILS 4.06 1.80 - 7.70 x10'3/uL 07/08/2024 3:06 PM CDT [facility] ABS. LYMPHOCYTES 1.43 1.00 - 4.80 x10'3/uL 07/08/2024 3:06 PM CDT [facility] ABS. MONOCYTES 0.48 0.24 - 0.86 x10'3/uL 07/08/2024 3:06 PM CDT [facility] ABS. EOSINOPHILS 0.15 0.04 - 0.36 x10'3/uL 07/08/2024 3:06 PM CDT [facility] ABS. BASOPHILS 0.03 0.01 - 0.08 x10'3/uL 07/08/2024 3:06 PM CDT [facility] ABS. IMMATURE GRANULOCYTES 0.01 0.00 - 0.49 x10'3/uL 07/08/2024 3:06 PM CDT [facility] 07/08/2024 2:41 PM CDT Belia Sierra MD LABORATORY Final Result [facility] [address] [place] [address], * MAGNESIUM (07/08/2024 2:41 PM CDT) MAGNESIUM 2.1 1.8 - 2.4 MG/DL 07/08/2024 3:32 PM CDT [facility] 07/08/2024 2:41 PM CDT Belia Sierra MD LABORATORY Final Result [facility] [address] [place] [address], [place] [phone] from Last 3 Months Additional Health Concerns Active Problems Noted Date Diagnosed Date Autogenerated Problem 08/29/2024 Insurance [employer] Care Teams Senior Mechanical Estimator Relationship Specialty Start Date End Date Belia Sierra MD [address] [place] [id number] PCP - General FAMILY PRACTICE 03/05/24
--- OUTSIDE RECORDS SUMMARY | 2024-09-24 17:54 | XMS_ITS | Encounter Summary ---
Author Organization [facility] Address [address] [place] [address] Care Team Providers Care Sand Screener Operator Name Role Phone Marjorie Saldivar MD Primary Care Provider [phone] None, Provider Primary Care Provider Belia Kirk MD Primary Care Provider [phone] Encounter Details Date Type Department Care Team (Late st Contact Info) Description 12/21/2017 Hospital Follow-up Call [facility] [place] [address] Rachel Jimenez RN Social History [...] Sex Assigned at Female 04/16/2024 9:58 AM TIN STACKER Legal Sex Female 8:14 AM CDT Gender Identity Female 04/16/2024 9:58 AM TIN STACKER Sexual Orientation Straight 07/19/2024 8: 31 AM CDT documented as of this encounter Plan of Treatment Upcoming Encounters Date Type Department Care Team (Latest Contact Info) Description 12/27/2024 12:43 PM CDT Hospital Encounter [facility] [address] [place] [address] Jay Real MD 3 [facility] [address] [place] [address] 12/27/2024 12:43 PM CDT - 12/27/2024 1:13 PM CDT [facility] [address] [place] [address] Jay Real MD 3 [facility] [address] [place] [address] COLONOSCOPY DIAGNOSTIC WITH/WITHOUT SPECIMEN BRUSH/WASH Scheduled Procedures Name Priority Associated Diagnoses Date/Ti me COLONOSCOPY DIAGNOSTIC WITH/WITHOUT SPECIMEN BRUSH/WASH Irregular bowel habits 12/27/2024 12:43 PM CDT documented as of this encounter Visit Diagnoses Not on filedocumented in this encounter Care Teams Sand Screener Operator Relationship Specialty Start Date End Date Marjorie Saldivar MD [address] [facility] [address] [place] [address] PCP - General FAMILY PRACTICE 12/06/17 12/08/23 None, MD Yamilet PCP - General UNKNOWN PHYSICIAN SPECIALTY 12/09/23 1 05/05/23 Belia Sierra MD [address] [address] PCP - General FAMILY PRACTICE 03/05/24 documented as of this encounter
--- OUTSIDE RECORDS SUMMARY | 2024-09-24 17:54 | XMS_ITS | Encounter Summary ---
Author Organization [facility] Address [address] [place] [address] Phone Care Team Providers Care Electrolytic De Scaler Name Role Phone Unavailable Primary Care Provider Unavailabl e Encounter Details Date Type Department Care Team (Late st Contact Info) Description 03/24/2022 Lab Requisition [facility] [address] [place] [address] Braeden Tabares MD [address] [place] [address] [address] [place], [place] [id number] Encounter for screening for COVID-19 Social History Tobacco Use Types Packs/Day Years Used Date Smoking Tobacco: Never Assessed Comments Unknown Sex and Gender Information Value Date Recorded Sex Assigned at Not on file Legal Sex Female 1:53 PM MANAGER NEONATAL Gender Identity Not on file Sexual Orientation Not on file documented as of this encounter Plan of Treatment Not on file documented as of this encounter Procedures Procedure Name Priority Date/Time Associated Diagnosis Comments SARS-COV-2 BY MOLECULAR Routine 03/24/2022 11:45 AM MANAGER NEONATAL Encounter for screening for COVID-19 documented in this encounter Results * SARS-COV-2 BY MOLECULAR (03/24/2022 11:45 AM MANAGER NEONATAL) SARSCOV2 NOT DETECTED (Referen ce Range for this test is Not Detected ) [facility] THERMOFISHER FAST DX 03/25/2022 12:19 AM MANAGER NEONATAL [facility] Comment:This test was perfor med by a RT-PCR method. Other Non-Phlebotomy Collection / Unknown 03/24/2022 11:45 AM MANAGER NEONATAL 03/24/2022 1:25 PM MANAGER NEONATAL Narrative [facility] - 03/25/2022 12:19 AM MANAGER NEONATAL Authorized Fact Sheets about this test for providers and patients are available at: https://www.fda.gov/medical-devices/kkghdqiwq-ymvlyhmoqh-ifexqgz-devices/emergen -us e-authorizations us Braeden Tabares MD MICROBIOLOGY - GENERAL ORDERAB LES Final Result [facility] [address] [place] [address], documented in this encounter Visit Diagnoses Diagnosis Encounter for screening for COVID-19 documented in this encounter Additional Health Concerns Infection Onset Date Last Indicated Resolved Time COVID - 19 03/24/2022 03/31/2022 04/10/2022 12:1 6 AM MANAGER NEONATAL documented as of this encounter
--- OUTSIDE RECORDS SUMMARY | 2024-09-24 17:54 | XMS_ITS | Encounter Summary ---
Author Organization [facility] Address [address] [place] [address] Care Team Providers Care Fulfillment Associate Name Role Phone Marjorie Saldivar MD Primary Care Provider [phone] None, Provider Primary Care Provider Belia Kirk MD Primary Care Provider [phone] Encounter Details Date Type Department Care Team (Late st Contact Info) Description 12/20/2017 Hospital Follow-up Call [facility] [place] [address] Christine Stiles RN Social History [...] Sex Assigned at Female 04/16/2024 9:58 AM REPACK ROOM WORKER Legal Sex Female 8:14 AM CDT Gender Identity Female 04/16/2024 9:58 AM REPACK ROOM WORKER Sexual Orientation Straight 07/19/2024 8: 31 AM CDT documented as of this encounter Plan of Treatment Upcoming Encounters Date Type Department Care Team (Latest Contact Info) Description 12/27/2024 12:43 PM CDT Hospital Encounter [facility] Surgery [address] [place] [address] Jay Real MD 3 [facility] [address] [place] [address] 12/27/2024 12:43 PM CDT - 12/27/2024 1:13 PM CDT Surgery [facility] Surgery [address] [place] [address] Jay Real MD 3 [facility] [address] [place] [address] COLONOSCOPY DIAGNOSTIC WITH/WITHOUT SPECIMEN BRUSH/WASH Scheduled Procedures Name Priority Associated Diagnoses Date/Ti me COLONOSCOPY DIAGNOSTIC WITH/WITHOUT SPECIMEN BRUSH/WASH Irregular bowel habits 12/27/2024 12:43 PM CDT documented as of this encounter Visit Diagnoses Not on filedocumented in this encounter Care Teams Fulfillment Associate Relationship Specialty Start Date End Date Marjorie Saldivar MD 190 [facility] [address] [place] [address] PCP - General FAMILY PRACTICE 12/06/17 12/08/23 None, MD Yamilet PCP - General UNKNOWN PHYSICIAN SPECIALTY 12/09/23 1 05/05/23 Belia Sierra MD [address] [address] PCP - General FAMILY PRACTICE 03/05/24 documented as of this encounter
== END 2024-09-24 18:11 | disposition left against medical advice (07) ==
LOC: ANHED 17:51
DX: R10.9 Unspecified abdominal pain (principal)
CPT/HCPCS: 99199